=== PATIENT | female | born 1940 | race Caucasian/White ===

== ENCOUNTER 2020-11-22 19:13 | Inpatient (IN) ==
[2020-11-22 20:00] LABS: Hematocrit (blood only) 24.7 % (37-47); Hemoglobin 7.9 g/dL (12.0-16.0); Mean Corpuscular Hemoglobin 30.6 pg (25-34); Mean Corpuscular Volume 95.7 fL (80-100); Mean Platelet Volume 9.6 fL (7.4-10.4); Platelet Count 245 K/uL (130-400); RDW Coefficient of Variation 23.7 % (11.5-14.5); RDW Standard Deviation 80.4 fL (36.4-46.3); Red Blood Count 2.58 M/uL (4.2-5.4); White Blood Count 7.91 K/uL (4.8-10.8)
[2020-11-22 20:13] LABS: INR 1.1 (0.9-1.1); Partial Thromboplastin Ratio 1.2; Partial Thromboplastin Time 31.8 Seconds (21.0-31.0); Prothrombin Time 10.7 Seconds (9.0-12.0)
[2020-11-22 20:42] LABS: Albumin Globulin Ratio 0.5 (0.9-2); Bilirubin,Total 0.4 mg/dl (0.2-1); Calcium 7.6 mg/dl (8.5-10.1); Creatinine Clr Calc Pharmacy 6.8 ml/min; Est GFR (African American) 8.5 ml/min; Est GFR (Non-African American) 7.4 ml/min; Globulin 3.8 gm/dl (2.5-4.0); Magnesium 2.1 mg/dl (1.8-2.4); Total Protein 5.8 gm/dl (6.4-8.2)
[2020-11-22 20:48] LABS: Anisocytosis Present; Basophils # (auto) 0.01 K/uL (0-0.2); Basophils % (auto) 0.1 %; Eosinophils # (auto) 0.03 K/uL (0-0.5); Eosinophils % (auto) 0.4 %; Giant Platelets 2+; Hypochromasia Present; Immature Granulocytes # (auto) 0.07 K/uL (0.00-0.02); Immature Granulocytes % (auto) 0.9 %; Lymphocytes # (auto) 0.57 K/uL (1.2-3.4); Lymphocytes % (auto) 7.2 %; Monocytes # (auto) 0.69 K/uL (0.11-0.59); Monocytes % (auto) 8.7 %; Neutrophils # (auto) 6.54 K/uL (1.4-6.5); Neutrophils % (auto) 82.7 %; Polychromasia 1+
[2020-11-22] MEDS ORDERED: FUROSEMIDE 40 MG/4 ML VIAL IV STA (21:04)
--- NOTE | 2020-11-22 21:43 | Emergency Department Note ---
Impression & Plan Acute hyponatremia, Weakness, Edema, peripheral, End stage renal disease, Anemia ED Provider Note INFORMANT: Patient ED PROVIDER(S): Bladimir Pulliam MD CHIEF COMPLAINT: Abdominal bloating PLAN: Disposition: Admitted Condition: Good Outpatient prescription management: none Referral: None MEDICAL DECISION MAKING: Patient presented to [facility] from [facility] by direction of nephrology. Currently she is doing well and her vital signs were stable. She was feeling better and noted no significant shortness of breath or abdominal discomfort/bloating. She had a concerning history because of the blood noted in the PD fluid yesterday. I did discuss the patient's issues with her daughter Monet phone number [phone]. We reviewed her history at [facility] and transferred to [facility]. The patient had labs obtained and was found to be hyponatremic. She has an elevated creatinine consistent with end-stage renal disease. She is moderately anemic but has no leukocytosis. She has no fever. I discussed the case with Dr. Porter of [facility] nephrology. He asked for the patient to have a contrast-enhanced CT scan of the abdomen and pelvis as well as to receive 100 mg of IV Lasix. This was ordered. The patient needs to be worked up here in the hospital. The patient will be admitted by the [facility] hospitalist service. I did consult with them and discussed the case with . The patient was evaluated in the ER for further management. Her imaging results are pending at this time. Triage Nursing notes reviewed and agree them. Vital Signs: reviewed and remarkable for no significant abnormalities Differential diagnosis: Complication of PD catheter, intra-abdominal hemorrhage, obstruction, infection, dehydration, metabolic abnormality, hypo/hyperglycemia, electrolyte disturbance, anemia, hypoxia, cardiac sources, intracerebral event, toxicologic, neurologic, as well as other pathologies. Diagnostics interpreted by me: ECG: Twelve-lead ECG reveals atrial fibrillation at 74 bpm. Right axis deviation. Incomplete right bundle branch block. Poor R wave progression anteriorly. Subtle T wave inversion and flattening noted anteriorly. No ST elevation. Cardiac Monitoring: Cardiac monitoring ordered by me: The patient was placed on continuous cardiac monitoring and observed. It revealed atrial fibrillation at 66 bpm. Imaging studies: CT imaging chest x-ray pending. HPI: The patient is a 80 year old female who presents to the Emergency Room with abdominal bloating and possible bleeding and her peritoneal dialysis catheter. The patient was directed from [facility] rehab to the ER by Dr. Porter. She reportedly had blood in her PD fluid yesterday. Today she noted some abdominal discomfort and bloating. On arrival to the ER here she notes her belly feels normal. The patient states she has had some mild shortness of breath. She notes moderate leg swelling. The patient was transferred to [facility] from [facility]. Prior to that she did have hip surgery and also was anemic. She did require blood transfusion per her daughter. She also developed a left subconjunctival hemorrhage that has been fairly sizable but has not changed per the daughter. The patient did miss her PD yesterday. Pt denies LOC, headache, fevers, chills, diaphoresis, new visual changes, neck pain, chest pain, nausea, vomiting, current abdominal pain, back pain, melena, hematochezia, urinary symptoms, numbness, rash, or other complaints. ROS: See above HPI for pertinent positives & negatives. A total of 10 systems reviewed and were otherwise negative. PAST MEDICAL HISTORY:See Below , end-stage renal disease PAST SURGICAL HISTORY:See Below, replacement FAMILY HISTORY:See Below SOCIAL HISTORY:See Below, retired HOME MEDICATIONS:See Below ALLERGIES:See Below VITALS:See Below PHYSICAL EXAMINATION: GENERAL: Awake, tired-appearing, in no distress HENT: Normocephalic, atraumatic. Oropharynx unremarkable. EYES: Normal conjunctiva on the right. Large subconjunctival hemorrhage on the left encompassing nearly the entire sclera. PERRLA. EOMI. The left cornea is clear without signs of hyphema. Sclera non-icteric. NECK: Inspection normal. Non-tender. Supple. No nuchal rigidity. FROM. No mas ses. RESPIRATORY: Clear to auscultation. No wheezes. No rales. Normal respiratory effort. CARDIAC: Normal rate. Normal rhythm. No murmurs. No rubs. Extremities warm and well perfused. Pulses equal. No JVD. GI: Soft, non-distended. No tenderness to palpation. No rebound or guarding. No masses. RECTAL: Deferred. MUSCULOSKELETAL: Atraumatic. Chest examination reveals no tenderness. The back is symmetrical on inspection without obvious abnormality. There is no CVA tenderness to palpation. No joint edema. LOWER EXTREMITIES: Calves are equal size bilaterally and non-tender. 2-3+ edema. No discoloration. NEURO: Normal sensorium. No sensory deficits noted. Generalized weakness noted. SKIN: No rash or jaundice noted. Bladimir Pulliam MD Past Med/Surg History Social History Smoking Status: Never smoker Feels Safe at Home: Yes Allergies Allergies Allergy/AdvReac Type Severity Reaction Status Date / Time angiotensin II acetate, human Allergy Unknown Unverified 11/22/20 21:44 Penicillins Allergy Unknown Unverified 11/22/20 21:44 sacubitril [From Entresto] Allergy Unknown Unverified 11/22/20 21:44 sulfamethoxazole Allergy Unknown Unverified 11/22/20 21:44 [From Bactrim] Tetracyclines Allergy Unknown Unverified 11/22/20 21:44 trimethoprim [From Bactrim] Allergy Unknown Unverified 11/22/20 21:44 valsartan [From Entresto] Allergy Unknown Unverified 11/22/20 21:44 vancomycin Allergy Unknown Unverified 11/22/20 21:44 Home Meds Home Medications Medication Instructions Recorded Confirmed aspirin [Aspirin Low Dose] 81 mg PO DAILY 11/22/20 11/22/20 bacitracin 1 applic TOPICAL 5XD 11/22/20 11/22/20 balsalazide 2,250 mg PO BID 11/22/20 11/22/20 budesonide [Entocort EC] 3 mg PO DAILY 11/22/20 11/22/20 bumetanide 4 mg PO DAILY 11/22/20 11/22/20 carboxymethylcellulose sodium 1 drp OPHTHALMIC (EYE) BID 11/22/20 11/22/20 [Refresh Tears] cholecalciferol (vitamin D3) 25 mcg PO DAILY 11/22/20 11/22/20 [Vitamin D3] cyanocobalamin (vitamin B-12) 1,000 mcg PO DAILY 11/22/20 11/22/20 docusate sodium 100 mg PO BID 11/22/20 11/22/20 donepezil 10 mg PO DAILY 11/22/20 11/22/20 escitalopram oxalate 10 mg PO DAILY 11/22/20 11/22/20 fluconazole 100 mg PO DAILY 11/22/20 11/22/20 gabapentin 100 mg PO BID 11/22/20 11/22/20 gentamicin 1 applic TOPICAL QID 11/22/20 11/22/20 insulin regular hum U-500 conc 2 unit SUBCUT QPM 11/22/20 11/22/20 [Humulin R U-500 (Conc) Insulin] levothyroxine 125 mcg PO DAILY 11/22/20 11/22/20 linagliptin [Tradjenta] 5 mg PO DAILY 11/22/20 11/22/20 melatonin 3 mg PO HS PRN 11/22/20 11/22/20 multivitamin 1 tab PO DAILY 11/22/20 11/22/20 nitroglycerin 0.4 mg SUBLINGUAL DAILY PRN 11/22/20 11/22/20 pantoprazole 40 mg PO DAILY 11/22/20 11/22/20 repaglinide 1 mg PO TID 11/22/20 11/22/20 ropinirole 0.5 mg PO HS 11/22/20 11/22/20 zinc oxide 1 applic TOPICAL BID 11/22/20 11/22/20 Results & Data (ED) Vital Signs Vital Signs - 24 hr 11/22/20 19:17 11/22/20 19:26 11/22/20 19:27 Temperature 36.9 C Temperature Source Oral Pulse Rate 72 72 72 Pulse Rate from SpO2 Sensor Pulse Rhythm Irregular Irregular Respiratory Rate 13 14 14 Respiratory Effort / Characteristics Non-Labored Spontaneous Respiratory Depth Normal Blood Pressure 117/59 L 117/59 L Blood Pressure Mean 78 78 Pulse Oximetry 94 94 Oxygen Delivery Method Room Air Room Air Sepsis Recent Fever Within 48 Hours No Sepsis New/Unexplained Change in Mental Status No Sepsis Action Taken by Nursing No Action Required 11/22/20 19:30 11/22/20 19:31 11/22/20 19:48 Temperature Temperature Source Pulse Rate 72 Pulse Rate from SpO2 Sensor 72 Pulse Rhythm Respiratory Rate 15 Respiratory Effort / Characteristics Respiratory Depth Blood Pressure 116/57 L Blood Pressure Mean 76 Pulse Oximetry 94 95 Oxygen Delivery Method Room Air Room Air Sepsis Recent Fever Within 48 Hours Sepsis New/Unexplained Change in Mental Status Sepsis Action Taken by Nursing 11/22/20 20:00 11/22/20 20:30 11/22/20 21:00 Temperature Temperature Source Pulse Rate 72 71 66 Pulse Rate from SpO2 Sensor 72 72 62 Pulse Rhythm Respiratory Rate 19 21 17 Respiratory Effort / Characteristics Respiratory Depth Blood Pressure 121/56 L 103/56 L 106/48 L Blood Pressure Mean 77 71 67 Pulse Oximetry 95 94 91 Oxygen Delivery Method Sepsis Recent Fever Within 48 Hours Sepsis New/Unexplained Change in Mental Status Sepsis Action Taken by Nursing 11/22/20 21:31 Temperature Temperature Source Pulse Rate 86 Pulse Rate from SpO2 Sensor 79 Pulse Rhythm Respiratory Rate 25 H Respiratory Effort / Characteristics Respiratory Depth Blood Pressure 137/73 Blood Pressure Mean 94 Pulse Oximetry Oxygen Delivery Method Sepsis Recent Fever Within 48 Hours Sepsis New/Unexplained Change in Mental Status Sepsis Action Taken by Nursing Laboratory Data Result diagrams: 11/22/20 19:39 11/22/20 19:39 Lab Results 11/22/20 11/22/20 11/22/20 Range/Units 19:39 19:39 19:39 WBC 7.91 (4.8-10.8) K/uL RBC 2.58 L (4.2-5.4) M/uL Hgb 7.9 L (12.0-16.0) g/dL Hct 24.7 L (37-47) % MCV 95.7 (80-100) fL MCH 30.6 (25-34) pg MCHC 32.0 (32-36) g/dL RDW Std Deviation 80.4 H (36.4-46.3) fL RDW Coeff of Mariaelena 23.7 H (11.5-14.5) % Plt Count 245 (130-400) K/uL MPV 9.6 (7.4-10.4) fL Immature Gran % (Auto) 0.9 % Neut % (Auto) 82.7 % Lymph % (Auto) 7.2 % Mcdonald % (Auto) 8.7 % Eos % (Auto) 0.4 % Baso % (Auto) 0.1 % Neut # (Auto) 6.54 H (1.4-6.5) K/uL Lymph # (Auto) 0.57 L (1.2-3.4) K/uL Mcdonald # (Auto) 0.69 H (0.11-0.59) K/uL Eos # (Auto) 0.03 (0-0.5) K/uL Baso # (Auto) 0.01 (0-0.2) K/uL Immature Gran # (Auto) 0.07 H (0.00-0.02) K/uL Giant Platelets 2+ Polychromasia 1+ Hypochromasia Present Anisocytosis Present PT (9.0-12.0) Seconds INR (0.9-1.1) APTT (21.0-31.0) Seconds PTT Ratio Sodium 123 L (136-145) mmol/L Potassium 5.0 (3.5-5.1) mmol/L Chloride 86 L (98-107) mmol/L Carbon Dioxide 24 (21-32) mmol/L Anion Gap 13.0 H (3-11) BUN 123 H (7-18) mg/dl Creatinine 5.19 H* (0.6-1.2) mg/dl Est Cr Clr Drug Dosing 6.8 ml/min Est GFR ( Amer) 8.5 ml/min Est GFR (Non-Af Amer) 7.4 ml/min BUN/Creatinine Ratio 24.0 H (10-20) Glucose 102 H (70-99) mg/dl Calcium 7.6 L (8.5-10.1) mg/dl Magnesium 2.1 (1.8-2.4) mg/dl Total Bilirubin 0.4 (0.2-1) mg/dl AST 49 H (15-37) U/L ALT 16 (12-78) U/L Alkaline Phosphatase 339 H (45-117) U/L Total Protein 5.8 L (6.4-8.2) gm/dl Albumin 2.0 L (3.4-5.0) gm/dl Globulin 3.8 (2.5-4.0) gm/dl Albumin/Globulin Ratio 0.5 L (0.9-2) COVID-19 Eval Order SARS-CoV-2 (PCR) (Negative) Blood Type O Positive Antibody Screen NEGATIVE 11/22/20 11/22/20 11/22/20 Range/Units 19:39 19:43 19:43 WBC (4.8-10.8) K/uL RBC (4.2-5.4) M/uL Hgb (12.0-16.0) g/dL Hct (37-47) % MCV (80-100) fL MCH (25-34) pg MCHC (32-36) g/dL RDW Std Deviation (36.4-46.3) fL RDW Coeff of Mariaelena (11.5-14.5) % Plt Count (130-400) K/uL MPV (7.4-10.4) fL Immature Gran % (Auto) % Neut % (Auto) % Lymph % (Auto) % Mcdonald % (Auto) % Eos % (Auto) % Baso % (Auto) % Neut # (Auto) (1.4-6.5) K/uL Lymph # (Auto) (1.2-3.4) K/uL Mcdonald # (Auto) (0.11-0.59) K/uL Eos # (Auto) (0-0.5) K/uL Baso # (Auto) (0-0.2) K/uL Immature Gran # (Auto) (0.00-0.02) K/uL Giant Platelets Polychromasia Hypochromasia Anisocytosis PT 10.7 (9.0-12.0) Seconds INR 1.1 (0.9-1.1) APTT 31.8 H (21.0-31.0) Seconds PTT Ratio 1.2 Sodium (136-145) mmol/L Potassium (3.5-5.1) mmol/L Chloride (98-107) mmol/L Carbon Dioxide (21-32) mmol/L Anion Gap (3-11) BUN (7-18) mg/dl Creatinine (0.6-1.2) mg/dl Est Cr Clr Drug Dosing ml/min Est GFR ( Amer) ml/min Est GFR (Non-Af Amer) ml/min BUN/Creatinine Ratio (10-20) Glucose (70-99) mg/dl Calcium (8.5-10.1) mg/dl Magnesium (1.8-2.4) mg/dl Total Bilirubin (0.2-1) mg/dl AST (15-37) U/L ALT (12-78) U/L Alkaline Phosphatase (45-117) U/L Total Protein (6.4-8.2) gm/dl Albumin (3.4-5.0) gm/dl Globulin (2.5-4.0) gm/dl Albumin/Globulin Ratio (0.9-2) COVID-19 Eval Order Covid19 at [facility] SARS-CoV-2 (PCR) NEGATIVE (Negative) Blood Type Antibody Screen Administered Medications Discontinued Medications Furosemide (Furosemide 40 Mg/4 Ml Vial) 100 mg IV NOW STA Stop: 11/22/20 21:05 Last Admin: 11/22/20 21:23 Dose: 100 mg Documented by: [id number] Discharge Plan Visit Data Chief Complaint: Shortness of Breath/Dyspnea Stated Complaint: SHORT OF BREATH ED Provider: Bladimir Pulliam Discharge Problem: Acute hyponatremia, Weakness, Edema, peripheral, End stage renal disease, Anemia Forms Stand Alone Forms: [facility] Prescriptions Prescriptions: No Action multivitamin Tablet 1 tab PO DAILY RF: 0 fluconazole 100 mg Tablet 100 mg PO DAILY RF: 0 donepezil 10 mg Tablet 10 mg PO DAILY RF: 0 bacitracin 500 unit/gram Ointment 1 applic TOPICAL 5XD RF: 0 melatonin 3 mg Tablet 3 mg PO HS PRN (Reason: Sleep) RF: 0 aspirin [Aspirin Low Dose] 81 mg Tablet,Delayed Release (Dr/Ec) 81 mg PO DAILY RF: 0 Humulin R U-500 (Conc) Insulin 500 unit/mL Solution 2 unit SUBCUT QPM RF: 0 levothyroxine 125 mcg Tablet 125 mcg PO DAILY RF: 0 docusate sodium 100 mg Capsule 100 mg PO BID RF: 0 balsalazide 750 mg Capsule 2,250 mg PO BID RF: 0 gentamicin 0.1 % Ointment 1 applic TOPICAL QID RF: 0 escitalopram oxalate 10 mg Tablet 10 mg PO DAILY RF: 0 zinc oxide Ointment 1 applic TOPICAL BID RF: 0 gabapentin 100 mg Tablet 100 mg PO BID RF: 0 Tradjenta 5 mg Tablet 5 mg PO DAILY RF: 0 bumetanide 2 mg Tablet 4 mg PO DAILY RF: 0 pantoprazole 40 mg Tablet,Delayed Release (Dr/Ec) 40 mg PO DAILY RF: 0 nitroglycerin 0.4 mg Tablet, Sublingual 0.4 mg sublingual DAILY PRN (Reason: Chest Pain) RF: 0 repaglinide 1 mg Tablet 1 mg PO TID RF: 0 cholecalciferol (vitamin D3) [Vitamin D3] 25 mcg (1,000 unit) Tablet 25 mcg PO DAILY RF: 0 cyanocobalamin (vitamin B-12) 1,000 mcg Capsule 1,000 mcg PO DAILY RF: 0 carboxymethylcellulose sodium [Refresh Tears] 0.5 % Drops 1 drp OPHTHALMIC (EYE) BID RF: 0 ropinirole 0.5 mg Tablet 0.5 mg PO HS RF: 0 budesonide [Entocort EC] 3 mg Capsule,Delayed,Extend.Release 3 mg PO DAILY RF: 0
[2020-11-22] MEDS ORDERED: OPTIRAY 320 100ml IV ONE (22:07)
[2020-11-22 22:23] LABS: Appearance Urine Clear (Clear); Bacteria Urine Automated Negative (Negative); Bilirubin Urine Negative (Negative); Blood Urine Negative (Negative); Cast Urine Automated 0 /lpf (0-5); Color Urine Dark Yellow; Glucose Urine UA Negative (Negative); Ketones Urine Negative (Negative); Leukocyte Esterase Urine Trace (Negative); Nitrite Urine Negative (Negative); Protein Urine Negative (Negative); Specific Gravity Urine 1.018 (1.000-1.030); Urobilinogen Urine Negative (Negative)
[2020-11-22 22:35] LABS: RBC Urine Automated 0-4 /hpf (0-4)
[2020-11-23] MEDS ORDERED: MELATONIN 3 MG TAB PO PRN (00:48)
[2020-11-23] MEDS ORDERED: NITROGLYCERIN SL 0.4 MG/TAB TAB SL PRN ×2 (00:48)
[2020-11-23] MEDS: ACETAMINOPHEN 325 MG TAB PO PRN ×2 (01:12→15:14)
[2020-11-23] MEDS ORDERED: GLUCOSE 40% GEL 15 GM TUBE PO PRN (01:30)
[2020-11-23] MEDS ORDERED: CARBOHYDRATES FOR HYPOGLYCEMIA PO PRN (01:30)
[2020-11-23] MEDS ORDERED: GLUCOSE 10 TABS/TUBE PO PRN (01:30)
[2020-11-23] MEDS ORDERED: GLUCAGON FOR INJ 1 MG VIAL IM PRN (01:30)
[2020-11-23] MEDS ORDERED: DEXTROSE 50% 50 ML SYRINGE IV PRN (01:30)
[2020-11-23] MEDS: rOPINIRole HCL 0.25 MG TABLET PO SCH ×2 (02:09→20:00)
--- NOTE | 2020-11-23 04:43 | History and Physical Report ---
DATE OF ADMISSION: 11/22/2020 CHIEF COMPLAINT: Missed dialysis and abdominal bloating. HISTORY OF PRESENT ILLNESS: A 80-year-old female with past medical history significant for type 2 diabetes, hypothyroidism, hyperlipidemia, hyperparathyroidism secondary to renal disease, diabetic polyneuropathy, mild nonproliferative diabetic retinopathy of both eyes without macular edema associated with type 2 diabetes, chronic pancreatitis, lung nodules , history of MN, history of chronic heart failure with preserved EF, moderate to severe pulmonary hypertension, paroxysmal atrial fibrillation, hypertension, CAD, moderate tricuspid regurgitation, severe malnutrition, GERD, history of collagenous colitis, history of unspecified cirrhosis of liver, history of pressure ulcer unstageable, restless leg syndrome, osteoporosis, compression fracture of the spine, ESRD on peritoneal dialysis, depression, history of CABG, history of mild cognitive impairment, primary insomnia, history of recent conjunctival hemorrhage of left eye. The patient was recently at [facility] for right hip fracture. The patient is status post right cemented hip arthroplasty in November 03 with orthopedics . complicated by postoperative blood loss anemia, required 2 units of PRBC, and also she has L5 vertebral body compression fractures evaluated by neurosurgery and deemed stable for conservative management and she also found to have possible [employer] PARAPROFESSIONAL was consulted with out patient followup and possibly transvaginal ultrasound recommended, urinary tract infection on flucanozole until 11/29, she also had urinary retention requiring multiple straight catheterizations and left eye subconjunctival hemorrhage, likely contributed by uremia on artificial tears as recommended by ophthalmology. She was discharged to rehab on 11/19/2020 and yesterday she had some blood while doing peritoneal dialysis and dialysis was not done. Today she also is complaining of bloating and nausea, not feeling well, tired. Brought in here and Nephrology wanted ct abd/pelvis with IV contrast which was done, which was reported unremarkable and labs shows sodium 123.Plan for dialysis in a.m. The patient's left eye subconjunctival hemorrhage is seen, there is no blurred vision, no headache, no earache, no runny nose, no sore throat, no cough, no fever, no chills, no chest pain. Has some shortness of breath and nausea, bloating is better. She says she has on and off diarrhea and constipation . She sometimes makes urine. Hemodynamically stable. ALLERGIES: PENICILLIN, ENTRESTO, BACTRIM, TETRACYCLINE, VANCOMYCIN. PAST MEDICAL HISTORY: As mentioned above. PAST SURGICAL HISTORY: CABG, AV access, , colonoscopy, coronary angiography with stent, coronary artery dilatation, dilatation and curettage, EGDs, flexible sigmoidoscopy, diagnostic laparoscopy, lumbar hemilaminectomy, right partial hip replacement, appendectomy, cataract surgery, removal of lumbar spine lamina, surgical removal of erupted tooth,upper endoscopy. MEDICATIONS: The patient currently on aspirin 81 mg p.o. daily, Bacitracin topically, balsalazide 2250mg budenoside 3mg po daily, bumex 4mg in am, 3mg noon and 3mg pm Restasis eye drops, vitamin D 25 mcg p.o. daily, vitamin B12 1000 mcg p.o. daily, Colace 100 mg p.o. b.i.d., donepezil 10 mg p.o. daily, Lexapro 10 mg p.o. daily, [id number] mg p.o. daily until , gabapentin 200 mg p.o. at bedtime, Humulin R U-500 2 units subcutaneous p.m., levothyroxine 125 mcg p.o. daily, Tradjenta 5 mg p.o. daily, melatonin 3 mg p.o. at bedtime p.r.n., multivitamin 1 tablet p.o. daily, nitroglycerin 0.4 mg sublingual p.r.n., Protonix 40 mg p.o. daily,repaglinide 1mg p.o. t.i.d., ropinirole 0.5 mg p.o. at bedtime, zinc oxide application topically b.i.d. FAMILY HISTORY: Significant for history of Alzheimer's disease, dermatomyositis, coronary artery disease. Father has coronary artery disease, emphysema, heart disorder, hypertension. Mother has stroke, hypertension and heart disorder. SOCIAL HISTORY: Currently at rehab,. No smoking, no alcohol, no drug use. REVIEW OF SYMPTOMS: As per HPI. Rest of review of systems is negative. PHYSICAL EXAMINATION: GENERAL: The patient is obese, not in acute distress. VITAL SIGNS: Temperature 36.9, pulse 86, respiratory rate 25, blood pressure 131/70, pulse ox 97% on room air. HEENT: Conjunctival hemorrhage seen on the left eye. Pupils equal, round, and reactive to light. Oral mucosa moist. NECK: No JVD. No neck masses. CARDIOVASCULAR: S1, S2 heard, regular rate and rhythm, no murmur, no gallop. RESPIRATORY SYSTEM: Normal AP diameter. No accessory muscle use. No wheezing, no crackles. ABDOMEN: Soft, bowel sounds present, nontender. No guarding, no rigidity. Peritoneal catheter site, no drainage seen, no erythema seen. CENTRAL NERVOUS SYSTEM: alert and oriented. speech clear, no facial droop, insight good, moves extremities. EXTREMITIES: No edema, no erythema seen. Skin Sacra pressure ulcere stage 2/3 seen LABORATORY DATA: wbc 7.9 hemoglobin 7.9, hematocrit 24.7, platelets 245. PT 10.7, INR 1.1, APTT 31.8. Sodium 123, potassium 5, chloride 86 CO2 24, Bun 123, Cr 5.19 serum glucose 102, calcium 7.6, magnesium 2.1, total bilirubin 0.4, AST 14, ALT 15, alkaline phosphatase 339. Urinalysis, trace leukocyte esterase, otherwise negative. SARS CoV-2 PCR negative. IMAGING: Chest x-ray, no acute findings. CT of the abdomen and pelvis with IV contrast. No hemoperitoneum, peritoneal dialysis catheter in place. Small volume free fluid in the pelvis, trace hemoperitoneum secondary to catheter. Volume overload with anasarca. Small right and trace left pleural effusion, cholelithiasis without evidence of acute cholecystitis. Age indeterminate splenic infarct. Atrophic right kidney. Delayed nephrogram. Moderate colonic stool burden. . Age indeterminate compression deformity of T12, L4 and L5. ASSESSMENT AND PLAN: This 80-year-old female recently had right hip surgery at [place] presents here because of bloating and missed dialysis for bleeding from catheter site. 1. Bleeding from PD catheter site. Currently seems ok. Ct abd/pevis with iv contrast seems ok. Will follow final report. Nephrology on board. 2. Hyponatremia, most likely due to missed dialysis and volume overload. Received iv lasix 100mg. Follow the repeat labs in a.m. and plan for dialysis in a.m. 3. Anemia of chronic kidney disease. Hemoglobin 7.9. Follow the repeat labs in a.m. 4. Diabetes. We will follow home medication ISS. we will follow HbA1c 5. Bloating probably from missed dialysis and hyponatremia.CT ok. Will monitor. 6 GERD. Continue Protonix. 7. Hypothyroidism. Continue Synthroid 8. Depression, on Lexapro. 9. recent right hip surgery. Site looks fine. pt/ot when stable. 10. hx of chf with preserved Ef. unspecified liver cirrhosis. Volume status by dialysis 11. Cad s/p cabg. On aspirin, statin and b laura. 12. hx of collagenous colitis. home meds. 13. Sacral pressure ulcer. Wound care 14. Conjunctival hemorrhage on left eye. continue artificial tears. 15. UTi to complete fluconazole tx. 16. DVT px scds DISPOSITION: closely monitor in the tele floor. Level 1 full code. Discharge her back to rehab when stable. PT/OT prior to discharge. security services manager to help with discharge planning. KALIN
[2020-11-23] MEDS: BACITRACIN OINT 15 GM TUBE TOP SCH ×5 (05:35→19:55)
[2020-11-23] MEDS: LEVOTHYROXINE SODIUM 125 MCG TABLET PO SCH (05:35)
[2020-11-23 05:45] LABS: Hemoglobin 8.5 g/dL (12.0-16.0); Mean Corpuscular Hgb Conc 32.7 g/dL (32-36); Mean Corpuscular Volume 94.9 fL (80-100); Platelet Count 235 K/uL (130-400); RDW Coefficient of Variation 23.7 % (11.5-14.5); RDW Standard Deviation 80.3 fL (36.4-46.3); Red Blood Count 2.74 M/uL (4.2-5.4)
[2020-11-23 06:28] LABS: Anisocytosis Present; Basophilic Stippling 1+; Basophils # (auto) 0.01 K/uL (0-0.2); Basophils % (auto) 0.1 %; Eosinophils # (auto) 0.02 K/uL (0-0.5); Eosinophils % (auto) 0.2 %; Immature Granulocytes # (auto) 0.08 K/uL (0.00-0.02); Immature Granulocytes % (auto) 0.9 %; Lymphocytes # (auto) 0.59 K/uL (1.2-3.4); Lymphocytes % (auto) 6.6 %; Monocytes # (auto) 1.03 K/uL (0.11-0.59); Monocytes % (auto) 11.6 %; Neutrophils # (auto) 7.17 K/uL (1.4-6.5); Neutrophils % (auto) 80.6 %; Polychromasia 1+
[2020-11-23 06:32] LABS: BUN Creatinine Ratio 24.7 (10-20); Creatinine Clr Calc Pharmacy 6.4 ml/min; Est GFR (African American) 8.4 ml/min; Est GFR (Non-African American) 7.2 ml/min; Magnesium 2.2 mg/dl (1.8-2.4); Potassium 5.4 mmol/L (3.5-5.1)
--- NOTE | 2020-11-23 07:35 | XRay Report ---
XR chest 1V portable CLINICAL HISTORY: weakness, esrd COMPARISON STUDY: No previous studies for comparison. FINDINGS: There are median sternotomy wires and mediastinal surgical clips. No pneumothorax is presen t. There are bilateral pleural effusions right larger left. There are bibasilar opacities. Interstiti al pulmonary edema is present. Note is made of cardiomegaly. IMPRESSION: Cardiomegaly with pulmonary edema and bilateral pleural effusions, right larger than lef t. ACT 112: Negative or not required by law. Electronically signed by: Anoop Connell M.D. 11/23/2020 7:33 AM
[2020-11-23 08:33] LABS: Estimated Average Glucose 100 mg/dl; Hemoglobin A1C 5.1 % (4.5-5.6)
--- NOTE | 2020-11-23 08:57 | CT Scan Report ---
ABDOMEN AND PELVIS CT WITH IV CONTRAST CT DOSE: 262.17 mGy.cm HISTORY: blood in peritoneal dialysis fluid TECHNIQUE: Multiaxial CT images of the abdomen and pelvis were performed following the use of intrave nous contrast. A dose lowering technique was utilized adhering to the principles of ALARA. COMPARISON STUDY: None. FINDINGS: Moderate right and small left pleural effusions with lower lobe consolidation. This favors compressive atelectasis from the pleural effusions. No pneumatosis. There is a healing left pubic rin g fracture. There is a right total hip arthroplasty. There are bilateral sacral insufficiency fractur es noted. These also are likely healing. Severe T12 compression deformity with 3 mm of retropulsion t he posterior superior corner. Mild anterior wedging at L2. There are moderate compression deformities at the superior endplate of L4 and inferior endplate of L5. These are technically age indeterminate but likely chronic. Cholelithiasis. No gallbladder wall thickening. Focal hypodensity within the sple arleen dome favors a splenic infarct. Mild atrophic right kidney. Delayed left nephrogram without hydron ephrosis. This could be due to to the proximal left renal artery stenosis from the atherosclerotic pl aque. There is severe calcified plaque within the aorta and mesenteric vessels. No evidence for an ab dominal aortic aneurysm. No retroperitoneal lymphadenopathy. The main portal vein is patent. There is mild periportal edema. There is severe diffuse body wall edema. Trace ascites. No evidence for hemop eritoneum. There is a peritoneal dialysis catheter terminating within the anterior pelvis. Trace ante rior pneumoperitoneum is likely due to the dialysis catheter. Bladder is underdistended and not well visualized. Moderate well-formed stool within the colon. There is mild mesenteric edema. No definite bowel wall thickening or obstruction. Hypodense appearance to the uterus which is not well visualized due to metallic artifact from the right hip prosthesis. IMPRESSION: 1. Peritoneal dialysis catheter is likely within the anterior pelvis. 2. No hemoperitoneum. 3. Severe diffuse body wall edema. 4. Cholelithiasis. 5. Delayed left nephrogram of uncertain etiology. No hydronephrosis. This could be due to a left kota l artery stenosis. 6. Focal splenic infarct. 7. Healing pelvic fractures as described above. 8. Age-indeterminate compression fractures within the spine. These are likely chronic. 9. No definite bowel wall thickening or obstruction. 10. Hypodense appearance to the uterus which is not well visualized due to the metallic artifact the right hip prosthesis. Consider follow-up nonemergent pelvic ultrasound for further evaluation. ACT 112: Positive. There are findings on this exam that require communication between the performing entity and the patient following Patient Test Result Information Act ([place] Act 112) guidelines. Electronically signed by: Choco Gaines M.D. 11/23/2020 8:56 AM
[2020-11-23] MEDS: INSULIN ASPART 100 UNITS/ML 3 ML PEN SC SCH ×4 (08:58→20:23)
[2020-11-23] MEDS ORDERED: BUMETANIDE 1 MG TAB PO SCH (09:00)
[2020-11-23] MEDS: DONEPEZIL HCL 10 MG TAB PO SCH (09:12)
[2020-11-23] MEDS: ESCITALOPRAM OXALATE 10 MG TAB PO SCH (09:12)
[2020-11-23] MEDS: MULTIVITAMIN TAB PO SCH (09:12)
[2020-11-23] MEDS: BUMETANIDE 1 MG TAB PO SCH ×3 (09:12→17:06)
[2020-11-23] MEDS: ASPIRIN 81 MG ECTAB PO SCH (09:12)
[2020-11-23] MEDS: DOCUSATE SODIUM 100 MG CAP PO SCH ×2 (09:12→20:02)
[2020-11-23] MEDS: CHOLECALCIFEROL 1,000 UNITS 25 MCG TAB PO SCH (09:12)
[2020-11-23] MEDS: PANTOprazole 40 MG TAB PO SCH (09:12)
[2020-11-23] MEDS: CYANOCOBALAMIN 500 MCG TABLET (VITAMIN B-12) PO SCH (09:12)
[2020-11-23] MEDS: FLUCONAZOLE 100 MG TAB PO SCH (09:12)
[2020-11-23] MEDS: BUDESONIDE EC 3 MG CAP PO SCH (09:12)
[2020-11-23] MEDS: ARTIFICIAL TEARS OP SCH ×2 (09:13→19:58)
[2020-11-23] MEDS: BUTT PASTE (ZINC OXIDE 16%) 171 APPLN/57 GM JAR EXT SCH ×2 (09:14→19:55)
[2020-11-23] MEDS ORDERED: metOLazone 5 MG TABLET PO ONE (10:02)
[2020-11-23] MEDS ORDERED: FUROSEMIDE 100 MG in SYRINGE 0 ML IV SCH (10:30)
--- NOTE | 2020-11-23 11:18 | Consultation Report ---
DATE OF CONSULTATION: 11/23/20 REASON FOR CONSULT: Peritoneal dialysis patient admitted because of abdominal pain and blood in the peritoneal dialysate. HISTORY OF PRESENT ILLNESS: The patient is a 80-year-old female with significant medical problem list including end-stage renal disease, newly started on peritoneal dialysis within the last few months. She was currently getting rehabilitation at the [facility] following an admission in [facility]. There, she was admitted for right hip fracture and surgical repair, which was done on 11/03/2020. Post- surgery, she had complicated course of events including significant blood loss anemia requiring blood transfusion and was also found to have vertebral body compression fracture, which was evaluated by neurosurgery, but she did not require surgery for that. She has also had multiple episodes of urinary retention as well as urinary tract infections requiring multiple straight catheterization. While in the hospital, she also developed significant subconjunctival hemorrhage. She was discharged to [facility] on 11/19/2020 for further rehabilitation. [facility], she had bloody dialysis in the peritoneal fluid and then the following day, she started having abdominal bloating as well as discomfort. Because of the bleeding and belly pain, she was instructed to come to the hospital for further evaluation and management. She did have a CT abdomen and pelvis with IV contrast as per my plan, which was unremarkable for anything life threatening. At this point, she is not complaining of abdominal pain. She has not had peritoneal dialysis now for 2 nights in a row because of bleeding and abdominal pain. At this point, she appears to be hemodynamically stable with decent blood pressure and vital signs. Laboratory test was significant for low serum sodium, which is down to 121 now. Potassium is 5.4. She does appear to be in volume overload and has significant edema at this point. PAST MEDICAL AND SURGICAL HISTORY: Includes type 2 diabetes, hypothyroidism, hyperlipidemia, ESRD on CAPD, diabetic polyneuropathy, diabetic retinopathy, history of chronic pancreatitis, lung nodules, history of [place], history of congestive heart failure with preserved ejection fraction, moderate to severe pulmonary hypertension, paroxysmal atrial fibrillation, GERD, history of severe osteoporosis as well as renal osteodystrophy, history of CABG, history of recent hip fracture with surgery, history of recent conjunctival hemorrhage. MEDICATIONS AT HOME: Reviewed in detail insert the reconciliation list. FAMILY HISTORY: Significant for Alzheimer disease, dermatomyositis, coronary artery disease. SOCIAL HISTORY: Currently getting rehabilitation at [facility]. No smoking, no alcohol, no drugs. REVIEW OF SYSTEMS: As per HPI, unless stated otherwise 12 systems reviewed and negative. Positive review of system included abdominal discomfort, bloating, but denies nausea, vomiting, chest pain, shortness of breath, orthopnea, PND. She does have significant lower extremity edema. PHYSICAL EXAMINATION: GENERAL: Elderly white female who appears to be chronically ill with frail appearance. She is not in overt respiratory distress. VITAL SIGNS: Blood pressure is 116/81, pulse rate 80, temperature 36.5, 97% on room air. Mucous membrane is moist. NECK: Supple. Jugular venous distention present. CHEST: Bilateral decreased breath sounds, occasional crackles at the bases. CVS: S1 and S2 regular. Systolic murmur heard. ABDOMEN: Distended. Abdominal wall edema present. EXTREMITIES: Show 2+ edema bilaterally. NEUROLOGIC: Normal speech. Awake, alert, oriented, moving all 4 extremities. LABORATORY TESTS: Hemoglobin 8.5. Sodium is 121, potassium 5.4, BUN 131, creatinine is 5.28. Chest x-ray shows pulmonary congestion. CT abdomen and pelvis shows abdominal wall edema, but there was not anything very concerning on the CT abdomen. ASSESSMENT AND PLAN: A 80-year-old female with endstage renal disease on chronic peritoneal dialysis, now transferred from [facility] where she had some bloody peritoneal dialysate, with abdominal distention. 1. Endstage renal disease. She does appear to be in need of doing dialysis, which we will do today. However, first I would like to do the PD fluid analysis to rule out peritonitis. We will send the PD fluid for cell count with differential, Gram stain and culture. After that, we will do a very prolonged peritoneal dialysis as she seems to be in some uremic phase. Her BUN is very high. Sodium is very low, consistent with hypervolemic hyponatremia. 2. Give Lasix 100 mg IV x1 with metolazone 5 mg to see if we can make some urine output. 3. After we obtain the cell count results, we will make further adjustment regarding the peritoneal dialysis. 4. For the next few days, she will need more aggressive dialysis to achieve euvolemic state as well as better BUN, creatinine and electrolytes. It does appear that she has not had adequate dialysis for quite some time and not just for 2 days that she missed, but this should get better in the coming days with more aggressive dialysis. Job ID: [id number] KALIN
--- NOTE | 2020-11-23 12:20 | Hospitalist Progress Note ---
Date of Service November 23, 2020 Assessment & Plan (1) Acute hyponatremia: (2) End stage renal disease: Bleeding from catheter site Abdominal bloating/Discomfort Get PD catheter fluid analysis CT abd and pelvis does not show hemoperitoneum Discussed with bar supervisor BUN markedly elevated Patient has not had good dialysis in the past few days due to Plan for aggressive dialysis in the next few days to achieve euvolemia Continue diuretics per nephrology Hyponatremia likely due to fluid overload Monitor sodium with initiation of dialysis Hypothyroidism Continue levothyroxine Depression Continue Lexapro. Recent right hip surgery PT/OT History of CHF with preserved EF. Volume status by dialysis CAD S/P CABG. Continue aspirin, statin and b laura. Conjunctival hemorrhage on left eye. Continue artificial tears. UTI Complete fluconazole tx. DVT ppx- SCD Admission and Anticipated Discharge Date Admission Date: November 22, 2020 Subjective 10-year-old female with PMH of DM2, hypothyroidism, hyperlipidemia, hyperparathyroidism secondary to renal disease, diabetic polyneuropathy, mild nonproliferative diabetic retinopathy of both eyes without macular edema, chronic pancreatitis, lung nodules, history of [place], history of chronic heart failure with preserved EF, moderate to severe pulmonary hypertension, paroxysmal atrial fibrillation, hypertension, CAD, moderate tricuspid regurgitation, severe malnutrition, GERD, history of collagenous colitis, history of unspecified cirrhosis of liver, history of pressure ulcer unstageable, restless leg syndrome, osteoporosis, compression fracture of the spine, ESRD newly started on peritoneal dialysis in the past few months, depression, history of CABG, history of mild cognitive impairment, primary insomnia, recent hospitalization at [place] for right hip fracture and repair, with complicated hospital course associated with blood loss anemia requiring transfusion, vertebral body compression fracture, multiple episodes of urinary retention and urinary tract infections significant left subconjunctival hemorrhage, who presents from [facility] rehab for blood from dialysis catheter and abd bloating/discomfort. Noted to by hyponatremic on presentation Patient seeen and examiend this morning Reports no abd discomfort/bloating at this time No nausea/vomiting Report some constipation. Reports occasional dryness of left eye but controlled with tear drops Denied any fevers, chills Denied any chest pain, shortness of breath Review of Systems Review of Systems: All systems reviewed & are unremarkable except as noted in Subjective Physical Exam Constitutional: + ill appearing (chronic); no acute distress Elderly woman Eyes: Left conjunctival hemorrhage ENMT: external ear and nose normal, oropharynx normal Respiratory: normal respiratory effort, lungs clear to auscultation Cardiovascular: Rate/Rhythm: + irregularly irregular S1 S2 +Pedal edema Gastrointestinal (Abdomen): normal bowel sounds, soft, nontender, no hepatosplenomegaly PD catheter in situ Musculoskeletal: +leg edema Neurologic: PERRL, EOMI, accommodation nl, no face palsy, no dysarthria Psychiatric: A+Ox3, euthymic affect Results & Data Results & Data ([facility]) Vital Signs (Past 12 Hours) Vital Signs Temp Pulse Resp BP Pulse Ox 11/23/20 07:28 36.5 C 80 17 116/81 97 11/23/20 03:54 36.7 C 80 22 121/71 93 11/23/20 00:49 36.6 C 78 18 141/65 H 97 Laboratory Results Abnormal lab results 11/22/20 11/22/20 11/22/20 Range/Units 19:39 19:39 19:39 RBC 2.58 L (4.2-5.4) M/uL Hgb 7.9 L (12.0-16.0) g/dL Hct 24.7 L (37-47) % RDW Std Deviation 80.4 H (36.4-46.3) fL RDW Coeff of Mariaelena 23.7 H (11.5-14.5) % Neut # (Auto) 6.54 H (1.4-6.5) K/uL Lymph # (Auto) 0.57 L (1.2-3.4) K/uL Antelope # (Auto) 0.69 H (0.11-0.59) K/uL Immature Gran # (Auto) 0.07 H (0.00-0.02) K/uL APTT 31.8 H (21.0-31.0) Seconds Sodium 123 L (136-145) mmol/L Potassium (3.5-5.1) mmol/L Chloride 86 L (98-107) mmol/L Anion Gap 13.0 H (3-11) BUN 123 H (7-18) mg/dl Creatinine 5.19 H* (0.6-1.2) mg/dl BUN/Creatinine Ratio 24.0 H (10-20) Glucose 102 H (70-99) mg/dl POC Glucose (70-99) mg/dl Calcium 7.6 L (8.5-10.1) mg/dl AST 49 H (15-37) U/L Alkaline Phosphatase 339 H (45-117) U/L Total Protein 5.8 L (6.4-8.2) gm/dl Albumin 2.0 L (3.4-5.0) gm/dl Albumin/Globulin Ratio 0.5 L (0.9-2) Ur Leukocyte Esterase (Negative) U Epithel Cells (Auto) (0-5) /lpf 11/22/20 11/23/20 11/23/20 Range/Units 21:40 05:33 05:33 RBC 2.74 L (4.2-5.4) M/uL Hgb 8.5 L (12.0-16.0) g/dL Hct 26.0 L (37-47) % RDW Std Deviation 80.3 H (36.4-46.3) fL RDW Coeff of Mariaelena 23.7 H (11.5-14.5) % Neut # (Auto) 7.17 H (1.4-6.5) K/uL Lymph # (Auto) 0.59 L (1.2-3.4) K/uL Antelope # (Auto) 1.03 H (0.11-0.59) K/uL Immature Gran # (Auto) 0.08 H (0.00-0.02) K/uL APTT (21.0-31.0) Seconds Sodium 121 L (136-145) mmol/L Potassium 5.4 H (3.5-5.1) mmol/L Chloride 85 L (98-107) mmol/L Anion Gap 12.0 H (3-11) BUN 131 H (7-18) mg/dl Creatinine 5.28 H* (0.6-1.2) mg/dl BUN/Creatinine Ratio 24.7 H (10-20) Glucose 47 L* (70-99) mg/dl POC Glucose (70-99) mg/dl Calcium 8.0 L (8.5-10.1) mg/dl AST (15-37) U/L Alkaline Phosphatase (45-117) U/L Total Protein (6.4-8.2) gm/dl Albumin (3.4-5.0) gm/dl Albumin/Globulin Ratio (0.9-2) Ur Leukocyte Esterase Trace H (Negative) U Epithel Cells (Auto) 5-10 H (0-5) /lpf 11/23/20 11/23/20 11/23/20 Range/Units 06:37 07:22 12:06 RBC (4.2-5.4) M/uL Hgb (12.0-16.0) g/dL Hct (37-47) % RDW Std Deviation (36.4-46.3) fL RDW Coeff of Mariaelena (11.5-14.5) % Neut # (Auto) (1.4-6.5) K/uL Lymph # (Auto) (1.2-3.4) K/uL Antelope # (Auto) (0.11-0.59) K/uL Immature Gran # (Auto) (0.00-0.02) K/uL APTT (21.0-31.0) Seconds Sodium (136-145) mmol/L Potassium (3.5-5.1) mmol/L Chloride (98-107) mmol/L Anion Gap (3-11) BUN (7-18) mg/dl Creatinine (0.6-1.2) mg/dl BUN/Creatinine Ratio (10-20) Glucose (70-99) mg/dl POC Glucose 58 L* 109 H 103 H (70-99) mg/dl Calcium (8.5-10.1) mg/dl AST (15-37) U/L Alkaline Phosphatase (45-117) U/L Total Protein (6.4-8.2) gm/dl Albumin (3.4-5.0) gm/dl Albumin/Globulin Ratio (0.9-2) Ur Leukocyte Esterase (Negative) U Epithel Cells (Auto) (0-5) /lpf
[2020-11-23] MEDS: ONDANSETRON INJ 2 MG/ML 2 ML VIAL IV PRN (12:33)
--- NOTE | 2020-11-23 12:37 | Electrocardiogram Report ---
Test Reason : Blood Pressure : / mmHG Vent. Rate : 074 BPM Atrial Rate : 075 BPM P-R Int : 000 ms QRS Dur : 092 ms QT Int : 400 ms P-R-T Axes : 000 126 256 degrees QTc Int : 444 ms Atrial fibrillation Right axis deviation Incomplete right bundle branch block Abnormal ECG No previous ECGs available Confirmed by Sung Cotter ([id number]) on 11/23/2020 12:37:26 PM Referred By: REFERRED SELF Confirmed By:Jacques Cotter
[2020-11-23 14:58] LABS: Amylase Peritoneal Fluid 9 U/L
[2020-11-23] MEDS ORDERED: ANUSOL SUPP 1 EA PR PRN (15:01)
[2020-11-23] MEDS ORDERED: SODIUM CHLORIDE 0.65% NA SOLN 45 ML (OCEAN) STA (15:11)
[2020-11-23] MEDS ORDERED: SODIUM CHLORIDE 0.65% NA SOLN 45 ML (OCEAN) PRN (15:16)
[2020-11-23 15:44] LABS: Appearance Peritoneal Fluid CLOUDY; Basophils, Fluid 0 %; Color Peritoneal Fluid RED; Eosinophils, Fluid 1 %; Lymphocytes, Fluid 5 %; Mono,Macrophage,Mesothelial 52 %; Neutrophils, Fluid 42 %; RBC Peritoneal Fluid (A) 43000 /uL; WBC Peritoneal Fluid (A) 147 /ul (0-300)
[2020-11-23] MEDS ORDERED: Nursing to Pharmacy Communication SCH (17:45)
[2020-11-23] MEDS ORDERED: VANCOMYCIN HCL 1,000 MG in SODIUM CHLORIDE 0.9% 250 ML IV ONE (18:15)
[2020-11-23] MEDS: HYDROCORTISONE HC 2.5% CRM 30GM TUBE EXT PRN (19:55)
[2020-11-23] MEDS ORDERED: GENTAMICIN SULFATE 60 MG in DEXTROSE 5% 100 ML IV ONE (20:00)
[2020-11-23] MEDS: GABAPENTIN 100 MG CAP PO SCH (20:01)
[2020-11-24] MEDS: LEVOTHYROXINE SODIUM 125 MCG TABLET PO SCH (06:00)
[2020-11-24 06:48] LABS: Hematocrit (blood only) 26.3 % (37-47); Hemoglobin 8.3 g/dL (12.0-16.0); Mean Corpuscular Hemoglobin 30.3 pg (25-34); Mean Corpuscular Hgb Conc 31.6 g/dL (32-36); Mean Platelet Volume 9.5 fL (7.4-10.4); Platelet Count 281 K/uL (130-400); RDW Coefficient of Variation 23.4 % (11.5-14.5); Red Blood Count 2.74 M/uL (4.2-5.4); White Blood Count 5.93 K/uL (4.8-10.8)
[2020-11-24 07:37] LABS: BUN Creatinine Ratio 21.8 (10-20); Calcium 7.8 mg/dl (8.5-10.1); Creatinine Clr Calc Pharmacy 6.7 ml/min; Est GFR (African American) 8.8 ml/min; Est GFR (Non-African American) 7.6 ml/min; Magnesium 2.1 mg/dl (1.8-2.4); Phosphorus 8.1 mg/dl (2.5-4.9); Potassium 4.1 mmol/L (3.5-5.1)
[2020-11-24] MEDS: BACITRACIN OINT 15 GM TUBE TOP SCH ×5 (08:00→18:06)
[2020-11-24] MEDS: BUMETANIDE 1 MG TAB PO SCH ×3 (08:41→17:34)
[2020-11-24] MEDS: MULTIVITAMIN TAB PO SCH (08:41)
[2020-11-24] MEDS: BUDESONIDE EC 3 MG CAP PO SCH (08:41)
[2020-11-24] MEDS: PANTOprazole 40 MG TAB PO SCH (08:41)
[2020-11-24] MEDS: DOCUSATE SODIUM 100 MG CAP PO SCH ×2 (08:41→20:02)
[2020-11-24] MEDS: ASPIRIN 81 MG ECTAB PO SCH (08:41)
[2020-11-24] MEDS: ESCITALOPRAM OXALATE 10 MG TAB PO SCH (08:41)
[2020-11-24] MEDS: CHOLECALCIFEROL 1,000 UNITS 25 MCG TAB PO SCH (08:41)
[2020-11-24] MEDS: FLUCONAZOLE 100 MG TAB PO SCH (08:41)
[2020-11-24] MEDS: ARTIFICIAL TEARS OP SCH ×2 (08:42→20:00)
[2020-11-24] MEDS: DONEPEZIL HCL 10 MG TAB PO SCH (08:42)
[2020-11-24] MEDS: INSULIN ASPART 100 UNITS/ML 3 ML PEN SC SCH ×4 (08:44→20:44)
[2020-11-24 08:49] LABS: Hepatitis B Surface Ab Quant 32.29 mIU/mL (>or=10mIU/mL Immune); Hepatitis B Surface Antibody Immune
[2020-11-24] MEDS: CYANOCOBALAMIN 500 MCG TABLET (VITAMIN B-12) PO SCH (08:52)
[2020-11-24 09:00] LABS: Hepatitis B Surf Ag Rflx Conf Neg (Neg)
[2020-11-24] MEDS ORDERED: PHARMACY GLYCEMIC MGMT CONSULT PRN (09:25)
[2020-11-24] MEDS: ACETAMINOPHEN 325 MG TAB PO PRN ×2 (10:28→20:39)
[2020-11-24] MEDS: BUTT PASTE (ZINC OXIDE 16%) 171 APPLN/57 GM JAR EXT SCH ×2 (10:46→20:01)
[2020-11-24] MEDS: HYDROCORTISONE HC 2.5% CRM 30GM TUBE EXT PRN ×3 (10:47→20:04)
--- NOTE | 2020-11-24 10:48 | Nephrology Progress Note ---
Date of Service November 24, 2020 Assessment & Plan Admission and Anticipated Discharge Date Admission Date: November 22, 2020 Subjective No abd pain now. Also Blood in PD GENERAL: Elderly white female who appears to be chronically ill with frail appearance. She is not in overt respiratory distress. NECK: Supple. Jugular venous distention present. CHEST: Bilateral decreased breath sounds, occasional crackles at the bases. CVS: S1 and S2 regular. Systolic murmur heard. ABDOMEN: Distended. Abdominal wall edema present. EXTREMITIES: Show 2+ edema bilaterally. NEUROLOGIC: Normal speech. Awake, alert, oriented, moving all 4 extremities. LABORATORY TESTS: Hemoglobin 8.5. Sodium is 121, potassium 5.4, BUN 131, creatinine is 5.28. Chest x-ray shows pulmonary congestion. CT abdomen and pelvis shows abdominal wall edema, but there was not anything very concerning on the CT abdomen. ASSESSMENT AND PLAN: A 80-year-old female with endstage renal disease on chronic peritoneal dialysis, now transferred from [facility] where she had some bloody peritoneal dialysate, with abdominal distention. 1. Endstage renal disease. She does appear to be in need of prolonged dialysis. BUn and Creat and Sodium little better today. PD fluid analysis was equivocal for peritonitis. But will Treat it though. Sodium is low, consistent with hypervolemic hyponatremia. 2. IP vanc and gent today. 3. 12 hr dialysis overnight--half 2.5% and half 4.25%. 4 Patient's daughter wants her to be transferred to [facility] as she is from that area and gets her regular care there. I have no problem with the transfer. 5 medically better today as no Blood visible today and Abd pain better. Results & Data ([facility]) Vital Signs (Past 12 Hours) Vital Signs Temp Pulse Pulse Resp BP Pulse Ox 11/24/20 07:50 36.8 C 82 20 115/69 92 11/24/20 02:58 36.5 C 84 17 123/67 94 11/24/20 00:00 85 11/23/20 23:58 37 C 86 18 126/65 97
[2020-11-24] MEDS ORDERED: Nursing to Pharmacy Communication SCH ×2 (11:00→19:30)
--- NOTE | 2020-11-24 11:10 | Pharmacy Report ---
Pharmacy Glycemic Short Note 2 - Date of Service November 24, 2020 - Glycemic Short BSG Results (Last 24 hours): 11/23/20 11/23/20 11/23/20 12:06 16:21 20:06 Glucose POC Glucose 103 H 80 222 H 11/24/20 11/24/20 11/24/20 06:30 07:09 10:52 Glucose 281 H POC Glucose 345 H* 244 H OUTPATIENT ANTIDIABETIC REGIMEN: * Repaglinide 1 mg PO TID * Tradjenta 5 mg PO daily * NPH 4 units SC if BSG above 300 mg/dL while on steroids * HbA1c: 5.1% * However, this result is likely somewhat unreliable in ESRD patients d/t interactions between the A1c analyzing technique and high levels of urea in ESRD, reduced RBC life span, iron deficiency anemia, and EPO administration. HbA1c > 7.5% in ESRD patient may overestimate the extent of hyperglycemia in ESRD patients. ASSESSMENT: * LP is a 80 year old female with ESRD on chronic peritoneal dialysis, presented from [facility] secondary to abdominal pain w/ blood in peritoneal dialysate * BSGs yesterday of 109, 103, 80, and 222 mg/dL * Managed with correction factor only * Pharmacy consulted for glycemic management this morning for BSG of 345 mg/dL * Given patient's frailty and low A1c, will be very conservative with Novolog insulin dosing * Will likely hold basal insulin for now * Based on patient interview, she is not very familiar with medication regimen and is certainly reliant on family * Scheduled for peritoneal dialysis session today PLAN FOR INPATIENT GLYCEMIC CONTROL: * Hold outpatient oral diabetes medications * Basal insulin * hold * Bolus insulin * NovoLog per scale ACHS or Q6hrs while NPO * Goal Range: Low 110 mg/dL - High 140 mg/dL * Correction Factor: 30 mg/dL/unit * Nutritional / Prandial insulin per carb ratio of 1 unit per 12 grams CHO consumed PLAN FOR DISCHARGE: * Can likely continue outpatient regimen as long as patient is not experiencing hypoglycemia as an outpatient
--- NOTE | 2020-11-24 13:15 | Hospitalist Progress Note ---
Date of Service November 24, 2020 Assessment & Plan (1) Acute hyponatremia: (2) End stage renal disease: Bleeding from catheter site Abdominal bloating/Discomfort CT abd and pelvis does not show hemoperitoneum Peritoneal fluid analysis is equivocal . Hence patient getting antibiotics for possible peritonitis Nephro may do this IP Discussed with investigative assistant Continue peritoneal dialysis Hyponatremia likely due to fluid overload Monitor sodium with PD Hypothyroidism Continue levothyroxine Depression Continue Lexapro. Recent right hip surgery PT/OT History of CHF with preserved EF. Volume status by dialysis CAD S/P CABG. Continue aspirin, statin and b laura. Conjunctival hemorrhage on left eye. Continue artificial tears. UTI Complete fluconazole tx. DVT ppx- SCD Patient and daughter requesting about possible transfer to [facility] Called over to [place]. I was told a rep will call back to discuss that as they were all busy at the time Will try again later. Admission and Anticipated Discharge Date Admission Date: November 22, 2020 Subjective 80-year-old female with PMH of DM2, hypothyroidism, hyperlipidemia, hyperparathyroidism secondary to renal disease, diabetic polyneuropathy, mild nonproliferative diabetic retinopathy of both eyes without macular edema, chronic pancreatitis, lung nodules, history of ID, history of chronic heart failure with preserved EF, moderate to severe pulmonary hypertension, paroxysmal atrial fibrillation, hypertension, CAD, moderate tricuspid regurgitation, severe malnutrition, GERD, history of collagenous colitis, history of unspecified cirrhosis of liver, history of pressure ulcer unstageable, restless leg syndrome, osteoporosis, compression fracture of the spine, ESRD newly started on peritoneal dialysis in the past few months, depression, history of CABG, history of mild cognitive impairment, primary insomnia, recent hospitalization at [place] for right hip fracture and repair, with complicated hospital course associated with blood loss anemia requiring transfusion, vertebral body compression fracture, multiple episodes of urinary retention and urinary tract infections significant left subconjunctival hemorrhage, who presents from [facility] rehab for blood from dialysis catheter and abd bloating/discomfort. Noted to by hyponatremic on presentation Patient seen and examined this morning Reported some nausea earlier that has resolved Denied abd pain Reported some bloody tearing from left eye earlier Denied any fevers, chills Denied any chest pain, shortness of breath Review of Systems Review of Systems: All systems reviewed & are unremarkable except as noted in Subjective Physical Exam Constitutional: + ill appearing (chronic); no acute distress Eyes: Left conjunctival hemorrhage ENMT: external ear and nose normal, oropharynx normal Respiratory: normal respiratory effort, lungs clear to auscultation Cardiovascular: Rate/Rhythm: + irregularly irregular S1 S2 Gastrointestinal (Abdomen): normal bowel sounds, soft, nontender, no hepatosplenomegaly PD catheter in situ Skin: Stage 3 sacral ulcer Neurologic: PERRL, EOMI, accommodation nl, no face palsy, no dysarthria Psychiatric: A+Ox3, euthymic affect Results & Data Results & Data ([facility]) Vital Signs (Past 12 Hours) Vital Signs Temp Pulse Resp BP Pulse Ox 11/24/20 12:45 36.7 C 20 11/24/20 12:12 36.7 C 87 20 127/69 93 11/24/20 07:50 36.8 C 82 20 115/69 92 11/24/20 02:58 36.5 C 84 17 123/67 94 Laboratory Results Laboratory Results - last 24 hr 11/23/20 11/23/20 11/23/20 13:15 16:21 20:06 WBC RBC Hgb Hct MCV MCH MCHC RDW Std Deviation RDW Coeff of Mariaelena Plt Count MPV Sodium Potassium Chloride Carbon Dioxide Anion Gap BUN Creatinine Est Cr Clr Drug Dosing Est GFR ( Amer) Est GFR (Non-Af Amer) BUN/Creatinine Ratio Glucose POC Glucose 80 222 H Calcium Phosphorus Magnesium Fluid Neutrophils % 42 Fluid Lymphocytes % 5 Fluid Eosinophils % 1 Fluid Basophils % 0 Fluid Meso/Macro/[place] % 52 Fluid Comment Peritoneal Color RED Peritoneal Appearance CLOUDY Peritoneal WBC 147 Peritoneal [place] [id number] Peritoneal Amylase 9 Hep Bs Antigen Hep Bs Antibody Hep Bs Antibody, Quant 11/24/20 11/24/20 11/24/20 06:30 06:30 06:30 WBC 5.93 RBC 2.74 L Hgb 8.3 L Hct 26.3 L MCV 96.0 MCH 30.3 MCHC 31.6 L RDW Std Deviation 81.0 H RDW Coeff of Mariaelena 23.4 H Plt Count 281 MPV 9.5 Sodium 125 L Potassium 4.1 D Chloride 88 L Carbon Dioxide 20 L Anion Gap 17.0 H BUN 110 H Creatinine 5.05 H* Est Cr Clr Drug Dosing 6.7 Est GFR ( Amer) 8.8 Est GFR (Non-Af Amer) 7.6 BUN/Creatinine Ratio 21.8 H Glucose 281 H POC Glucose Calcium 7.8 L Phosphorus 8.1 H Magnesium 2.1 Fluid Neutrophils % Fluid Lymphocytes % Fluid Eosinophils % Fluid Basophils % Fluid Meso/Macro/[place] % Fluid Comment Peritoneal Color Peritoneal Appearance Peritoneal WBC Peritoneal RBC Peritoneal Amylase Hep Bs Antigen Neg Hep Bs Antibody Immune Hep Bs Antibody, Quant 32.29 11/24/20 11/24/20 11/24/20 07:09 10:52 11:32 WBC RBC Hgb Hct MCV MCH MCHC RDW Std Deviation RDW Coeff of Mariaelena Plt Count MPV Sodium Potassium Chloride Carbon Dioxide Anion Gap BUN Creatinine Est Cr Clr Drug Dosing Est GFR ( Amer) Est GFR (Non-Af Amer) BUN/Creatinine Ratio Glucose POC Glucose 345 H* 244 H 218 H Calcium Phosphorus Magnesium Fluid Neutrophils % Fluid Lymphocytes % Fluid Eosinophils % Fluid Basophils % Fluid Meso/Macro/[place] % Fluid Comment Peritoneal Color Peritoneal Appearance Peritoneal WBC Peritoneal RBC Peritoneal Amylase Hep Bs Antigen Hep Bs Antibody Hep Bs Antibody, Quant
[2020-11-24] MEDS ORDERED: PERITONEAL 2.5% IP SCH ×2 (14:00→22:00)
[2020-11-24] MEDS ORDERED: VANCOMYCIN HCL IP SCH ×2 (14:00→22:00)
[2020-11-24] MEDS ORDERED: GENTAMICIN SULFATE IP SCH ×2 (14:00→22:00)
[2020-11-24] MEDS ORDERED: DIALYSIS IP SCH ×2 (14:00→22:00)
--- NOTE | 2020-11-24 19:28 | Surgery Consultation ---
Date of Consultation November 24, 2020 Assessment & Plan (1) Sacral decubitus ulcer: pt is a 80 year-old female who is consulted for sacral ulcer IMP; sacral ulcer Plan, no redness, no cellulitis around ulcer, consult wound care nurse for dressing change once a day, may try chemical debridement on ulcer, may do MRI to R/O osteomyelitis, will F/U, Thanks, Present on Admission?: Yes History of Present Illness Attending Physician: Shaila Walden MD CHIEF COMPLAINT: Missed dialysis and abdominal bloating. HISTORY OF PRESENT ILLNESS: A 80-year-old female with past medical history significant for type 2 diabetes, hypothyroidism, hyperlipidemia, hyperparathyroidism secondary to renal disease, diabetic polyneuropathy, mild nonproliferative diabetic retinopathy of both eyes without macular edema associated with type 2 diabetes, chronic pancreatitis, lung nodules , history of UT, history of chronic heart failure with preserved EF, moderate to severe pulmonary hypertension, paroxysmal atrial fibrillation, hypertension, CAD, moderate tricuspid regurgitation, severe malnutrition, GERD, history of collagenous colitis, history of unspecified cirrhosis of liver, history of pressure ulcer unstageable, restless leg syndrome, osteoporosis, compression fracture of the spine, ESRD on peritoneal dialysis, depression, history of CABG, history of mild cognitive impairment, primary insomnia, history of recent conjunctival hemorrhage of left eye. The patient was recently at [place] for right hip fracture. The patient is status post right cemented hip arthroplasty in November 03 with orthopedics . complicated by postoperative blood loss anemia, required 2 units of PRBC, and also she has L5 vertebral body compression fractures evaluated by neurosurgery and deemed stable for conservative management and she also found to have possible [employer]IGHWAY [employer]PER[employer]OR was consulted with out patient followup and possibly transvaginal ultrasound recommended, urinary tract infection on flucanozole until 11/29, she also had urinary retention requiring multiple straight catheterizations and left eye subconjunctival hemorrhage, likely contributed by uremia on artificial tears as recommended by ophthalmology. She was discharged to rehab on 11/19/2020 and yesterday she had some blood while doing peritoneal dialysis and dialysis was not done. Today she also is complaining of bloating and nausea, not feeling well, tired. Brought in here and Nephrology wanted ct abd/pelvis with IV contrast which was done, which was reported unremarkable and labs shows sodium 123.Plan for dialysis in a.m. The patient's left eye subconjunctival hemorrhage is seen, there is no blurred vision, no headache, no earache, no runny nose, no sore throat, no cough, no fever, no chills, no chest pain. Has some shortness of breath and nausea, bloating is better. She says she has on and off diarrhea and constipation . She sometimes makes urine. Hemodynamically stable. I ( Duane Munoz MD ) got a call for consult sacral ulcer, I reviewed pt's H/P, labs, CT scan with pt, nurse at bedside, ALLERGIES: PENICILLIN, ENTRESTO, BACTRIM, TETRACYCLINE, VANCOMYCIN. PAST MEDICAL HISTORY: As mentioned above. PAST SURGICAL HISTORY: CABG, AV access, , colonoscopy, coronary angiography with stent, coronary artery dilatation, dilatation and curettage, EGDs, flexible sigmoidoscopy, diagnostic laparoscopy, lumbar hemilaminectomy, right partial hip replacement, appendectomy, cataract surgery, removal of lumbar spine lamina, surgical removal of erupted tooth,upper endoscopy. MEDICATIONS: The patient currently on aspirin 81 mg p.o. daily, Bacitracin topically, balsalazide 2250mg budenoside 3mg po daily, bumex 4mg in am, 3mg noon and 3mg pm Restasis eye drops, vitamin D 25 mcg p.o. daily, vitamin B12 1000 mcg p.o. daily, Colace 100 mg p.o. b.i.d., donepezil 10 mg p.o. daily, Lexapro 10 mg p.o. daily, [id number] mg p.o. daily until , gabapentin 200 mg p.o. at bedtime, Humulin R U-500 2 units subcutaneous p.m., levothyroxine 125 mcg p.o. daily, Tradjenta 5 mg p.o. daily, melatonin 3 mg p.o. at bedtime p.r.n., multivitamin 1 tablet p.o. daily, nitroglycerin 0.4 mg sublingual p.r.n., Protonix 40 mg p.o. daily,repaglinide 1mg p.o. t.i.d., ropinirole 0.5 mg p.o. at bedtime, zinc oxide application topically b.i.d. FAMILY HISTORY: Significant for history of Alzheimer's disease, dermatomyositis, coronary artery disease. Father has coronary artery disease, emphysema, heart disorder, hypertension. Mother has stroke, hypertension and heart disorder. SOCIAL HISTORY: Currently at rehab,. No smoking, no alcohol, no drug use. REVIEW OF SYMPTOMS: As per HPI. Rest of review of systems is negative. Allergies Allergy/AdvReac Type Severity Reaction Status Date / Time angiotensin II acetate, human Allergy Unknown Unverified 11/22/20 21:44 Penicillins Allergy Unknown Unverified 11/22/20 21:44 sacubitril [From Entresto] Allergy Unknown Unverified 11/22/20 21:44 sulfamethoxazole Allergy Unknown Unverified 11/22/20 21:44 [From Bactrim] Tetracyclines Allergy Unknown Unverified 11/22/20 21:44 trimethoprim [From Bactrim] Allergy Unknown Unverified 11/22/20 21:44 valsartan [From Entresto] Allergy Unknown Unverified 11/22/20 21:44 vancomycin Allergy Unknown Unverified 11/22/20 21:44 Home Medications Medication Instructions Recorded Confirmed Type aspirin [Aspirin Low Dose] 81 mg PO DAILY 11/22/20 11/22/20 History bacitracin 1 applic TOPICAL 5XD 11/22/20 11/22/20 History balsalazide 2,250 mg PO BID 11/22/20 11/22/20 History budesonide [Entocort EC] 3 mg PO DAILY 11/22/20 11/22/20 History bumetanide 4 mg PO USEASDIRECTD 11/22/20 11/22/20 History carboxymethylcellulose sodium 1 drp OPHTHALMIC (EYE) BID 11/22/20 11/22/20 History [Refresh Tears] cholecalciferol (vitamin D3) 25 mcg PO DAILY 11/22/20 11/22/20 History [Vitamin D3] cyanocobalamin (vitamin B-12) 1,000 mcg PO DAILY 11/22/20 11/22/20 History docusate sodium 100 mg PO BID 11/22/20 11/22/20 History donepezil 10 mg PO DAILY 11/22/20 11/22/20 History escitalopram oxalate 10 mg PO DAILY 11/22/20 11/22/20 History fluconazole 100 mg PO DAILY 11/22/20 11/22/20 History gabapentin 200 mg PO HS 11/22/20 11/22/20 History gentamicin 1 applic TOPICAL QID 11/22/20 11/22/20 History levothyroxine 125 mcg PO DAILY 11/22/20 11/22/20 History linagliptin [Tradjenta] 5 mg PO DAILY 11/22/20 11/22/20 History melatonin 3 mg PO HS PRN 11/22/20 11/22/20 History multivitamin 1 tab PO DAILY 11/22/20 11/22/20 History nitroglycerin 0.4 mg SUBLINGUAL DAILY PRN 11/22/20 11/22/20 History pantoprazole 40 mg PO DAILY 11/22/20 11/22/20 History repaglinide 1 mg PO TID 11/22/20 11/22/20 History ropinirole 0.5 mg PO HS 11/22/20 11/22/20 History zinc oxide 1 applic TOPICAL BID 11/22/20 11/22/20 History Patient History Social History Smoking Status: Never smoker Second Hand Exposure: Yes; Hx Alcohol Use: No Hx Substance Use: No Preferred Language: Georgian Communication Ability: Effective Post Hole Digger Required: No Beliefs That Will Affect Care: Jain Current Living Situation: Family Current Living Situation Comment: Lives at home with daughter Ewelina Other Information That Helps Us Care for You: No Feels Safe at Home: Yes Safety Concerns: Feels Safe At This Time Assistive Devices: Walker Physical Exam Constitutional: WD/WN, vitals as above Eyes: left eye hematoma, Neck: trachea midline, no thyromegaly Respiratory: normal respiratory effort, lungs clear to auscultation normal respiratory effort Cardiovascular: RRR, no murmur, no edema Gastrointestinal (Abdomen): normal bowel sounds, soft, nontender, no hepatosplenomegaly Skin: sacral ulcer size 1.5x 2.5cm, stage II-III, no redness, no drainage, Neurologic: awake Results & Data ([facility]) Vital Signs (Past 12 Hours) Vital Signs Temp Pulse Pulse Resp BP Pulse Ox 11/24/20 16:10 36.7 C 78 20 128/77 95 11/24/20 16:00 80 11/24/20 12:45 36.7 C 20 11/24/20 12:12 36.7 C 87 20 127/69 93 11/24/20 08:00 80 11/24/20 07:50 36.8 C 82 20 115/69 92 Laboratory Results Abnormal lab results 11/23/20 11/24/20 11/24/20 Range/Units 20:06 06:30 06:30 RBC 2.74 L (4.2-5.4) M/uL Hgb 8.3 L (12.0-16.0) g/dL Hct 26.3 L (37-47) % MCHC 31.6 L (32-36) g/dL RDW Std Deviation 81.0 H (36.4-46.3) fL RDW Coeff of Mariaelena 23.4 H (11.5-14.5) % Sodium 125 L (136-145) mmol/L Chloride 88 L (98-107) mmol/L Carbon Dioxide 20 L (21-32) mmol/L Anion Gap 17.0 H (3-11) BUN 110 H (7-18) mg/dl Creatinine 5.05 H* (0.6-1.2) mg/dl BUN/Creatinine Ratio 21.8 H (10-20) Glucose 281 H (70-99) mg/dl POC Glucose 222 H (70-99) mg/dl Calcium 7.8 L (8.5-10.1) mg/dl Phosphorus 8.1 H (2.5-4.9) mg/dl 11/24/20 11/24/20 11/24/20 Range/Units 07:09 10:52 11:32 RBC (4.2-5.4) M/uL Hgb (12.0-16.0) g/dL Hct (37-47) % MCHC (32-36) g/dL RDW Std Deviation (36.4-46.3) fL RDW Coeff of Mariaelena (11.5-14.5) % Sodium (136-145) mmol/L Chloride (98-107) mmol/L Carbon Dioxide (21-32) mmol/L Anion Gap (3-11) BUN (7-18) mg/dl Creatinine (0.6-1.2) mg/dl BUN/Creatinine Ratio (10-20) Glucose (70-99) mg/dl POC Glucose 345 H* 244 H 218 H (70-99) mg/dl Calcium (8.5-10.1) mg/dl Phosphorus (2.5-4.9) mg/dl 11/24/20 Range/Units 16:32 RBC (4.2-5.4) M/uL Hgb (12.0-16.0) g/dL Hct (37-47) % MCHC (32-36) g/dL RDW Std Deviation (36.4-46.3) fL RDW Coeff of Mariaelena (11.5-14.5) % Sodium (136-145) mmol/L Chloride (98-107) mmol/L Carbon Dioxide (21-32) mmol/L Anion Gap (3-11) BUN (7-18) mg/dl Creatinine (0.6-1.2) mg/dl BUN/Creatinine Ratio (10-20) Glucose (70-99) mg/dl POC Glucose 222 H (70-99) mg/dl Calcium (8.5-10.1) mg/dl Phosphorus (2.5-4.9) mg/dl
[2020-11-24] MEDS: GABAPENTIN 100 MG CAP PO SCH (20:00)
[2020-11-24] MEDS: rOPINIRole HCL 0.25 MG TABLET PO SCH (20:00)
[2020-11-24] MEDS: BALSALAZIDE PO SCH (20:01)
[2020-11-24] MEDS: ONDANSETRON INJ 2 MG/ML 2 ML VIAL IV PRN (21:18)
[2020-11-24 22:46] LABS: Appearance Peritoneal Fluid CLEAR; Basophils, Fluid 0 %; Color Peritoneal Fluid COLORLESS; Eosinophils, Fluid 0 %; Lymphocytes, Fluid 31 %; Mono,Macrophage,Mesothelial 68 %; Neutrophils, Fluid 1 %; RBC Peritoneal Fluid (A) < 3000 /uL; WBC Peritoneal Fluid (A) 23 /ul (0-300)
[2020-11-25] MEDS: INSULIN ASPART 100 UNITS/ML 3 ML PEN SC SCH ×4 (00:25→12:27)
[2020-11-25] MEDS: BACITRACIN OINT 15 GM TUBE TOP SCH ×3 (04:40→12:27)
[2020-11-25] MEDS: HYDROCORTISONE HC 2.5% CRM 30GM TUBE EXT PRN (04:41)
[2020-11-25] MEDS: LEVOTHYROXINE SODIUM 125 MCG TABLET PO SCH (04:42)
[2020-11-25 06:19] LABS: Hematocrit (blood only) 28.3 % (37-47); Hemoglobin 8.9 g/dL (12.0-16.0); Mean Corpuscular Hemoglobin 30.4 pg (25-34); Mean Corpuscular Hgb Conc 31.4 g/dL (32-36); Mean Corpuscular Volume 96.6 fL (80-100); Mean Platelet Volume 8.8 fL (7.4-10.4); Platelet Count 270 K/uL (130-400); RDW Coefficient of Variation 23.6 % (11.5-14.5); RDW Standard Deviation 81.6 fL (36.4-46.3); Red Blood Count 2.93 M/uL (4.2-5.4); White Blood Count 7.08 K/uL (4.8-10.8)
[2020-11-25 06:52] LABS: BUN Creatinine Ratio 19.9 (10-20); Creatinine Clr Calc Pharmacy 6.7 ml/min; Est GFR (African American) 9.2 ml/min; Est GFR (Non-African American) 7.9 ml/min; Potassium 3.5 mmol/L (3.5-5.1)
[2020-11-25] MEDS: DONEPEZIL HCL 10 MG TAB PO SCH (08:16)
[2020-11-25] MEDS: ASPIRIN 81 MG ECTAB PO SCH (08:16)
[2020-11-25] MEDS: PANTOprazole 40 MG TAB PO SCH (08:17)
[2020-11-25] MEDS: ESCITALOPRAM OXALATE 10 MG TAB PO SCH (08:17)
[2020-11-25] MEDS: CYANOCOBALAMIN 500 MCG TABLET (VITAMIN B-12) PO SCH (08:17)
[2020-11-25] MEDS: BUMETANIDE 1 MG TAB PO SCH ×2 (08:17→12:32)
[2020-11-25] MEDS: CHOLECALCIFEROL 1,000 UNITS 25 MCG TAB PO SCH (08:17)
[2020-11-25] MEDS: MULTIVITAMIN TAB PO SCH (08:17)
[2020-11-25] MEDS: FLUCONAZOLE 100 MG TAB PO SCH (08:17)
[2020-11-25] MEDS: BUDESONIDE EC 3 MG CAP PO SCH (08:18)
[2020-11-25] MEDS: BALSALAZIDE PO SCH ×2 (08:18→13:35)
[2020-11-25] MEDS: ARTIFICIAL TEARS OP SCH (08:21)
--- NOTE | 2020-11-25 08:21 | Pharmacy Report ---
Pharmacy Glycemic Short Note 2 - Date of Service November 25, 2020 - Glycemic Short BSG Results (Last 24 hours): 11/24/20 11/24/20 11/24/20 10:52 11:32 16:32 Glucose POC Glucose 244 H 218 H 222 H 11/24/20 11/24/20 11/25/20 20:22 23:51 04:07 Glucose POC Glucose 151 H 262 H 192 H 11/25/20 11/25/20 05:57 07:17 Glucose 149 H POC Glucose 198 H OUTPATIENT ANTIDIABETIC REGIMEN: * Repaglinide 1 mg PO TID * Tradjenta 5 mg PO daily * NPH 4 units SC if BSG above 300 mg/dL while on steroids * HbA1c: 5.1% * However, this result is likely somewhat unreliable in ESRD patients d/t interactions between the A1c analyzing technique and high levels of urea in ESRD, reduced RBC life span, iron deficiency anemia, and EPO administration. HbA1c > 7.5% in ESRD patient may overestimate the extent of hyperglycemia in ESRD patients. ASSESSMENT: 11/25 * BSGs elevated yesterday, ranging 151-345 mg/dL * Utilized bolus insulin q4h yesterday in light of patient's frailty and uncertainty with typical insulin needs * Will tighten carb ratio today * Fasting BSG of 198 mg/dL this morning - will initiate low-dose basal insulin today * Patient on chronic peritoneal dialysis, currently receiving intraperitoneal vancomycin/gentamicin via dwell * May help to explain elevated BSGs 11/24 * LP is a 80 year old female with ESRD on chronic peritoneal dialysis, presented from [facility] rehab secondary to abdominal pain w/ blood in peritoneal dialysate * BSGs yesterday of 109, 103, 80, and 222 mg/dL * Managed with correction factor only * Pharmacy consulted for glycemic management this morning for BSG of 345 mg/dL * Given patient's frailty and low A1c, will be very conservative with Novolog insulin dosing * Will likely hold basal insulin for now * Based on patient interview, she is not very familiar with medication regimen and is certainly reliant on family * Scheduled for peritoneal dialysis session today PLAN FOR INPATIENT GLYCEMIC CONTROL: * Hold outpatient oral diabetes medications * Basal insulin * Lantus 5 units SC BID * Bolus insulin * NovoLog per scale ACHS or Q6hrs while NPO * Goal Range: Low 120 mg/dL - High 150 mg/dL * Correction Factor: 30 mg/dL/unit * Nutritional / Prandial insulin per carb ratio of 1 unit per 9 grams CHO consumed PLAN FOR DISCHARGE: * Can likely continue outpatient regimen as long as patient is not experiencing hypoglycemia as an outpatient
[2020-11-25] MEDS: BUTT PASTE (ZINC OXIDE 16%) 171 APPLN/57 GM JAR EXT SCH (08:22)
[2020-11-25] MEDS: DOCUSATE SODIUM 100 MG CAP PO SCH (08:23)
[2020-11-25] MEDS ORDERED: GENTAMICIN SULFATE 0.1% CR 15 GM TUBE EXT SCH (09:00)
[2020-11-25] MEDS ORDERED: INSULIN GLARGINE SOLOSTAR 100 UNITS/ML 3 ML PEN SC SCH (09:00)
--- NOTE | 2020-11-25 09:11 | Dialysis Progress Note ---
Date of Service November 25, 2020 Assessment & Plan Admission and Anticipated Discharge Date Admission Date: November 22, 2020 Subjective Seen during PD exchanges. No abd pain now. Also Blood in PD resolved. GENERAL: Elderly white female who appears to be chronically ill with frail appearance. She is not in overt respiratory distress. NECK: Supple. Jugular venous distention present. CHEST: Bilateral decreased breath sounds, occasional crackles at the bases. CVS: S1 and S2 regular. Systolic murmur heard. ABDOMEN: Distended. Abdominal wall edema present. EXTREMITIES: Show 1+ edema bilaterally in the thigh area. Much less. NEUROLOGIC: Normal speech. Awake, alert, oriented, moving all 4 extremities. LABORATORY TESTS: Labs better. Both BUN and Na. hgb low ASSESSMENT AND PLAN: A 80-year-old female with endstage renal disease on chronic peritoneal dialysis, now transferred from [facility] where she had some bloody peritoneal dialysate, with abdominal distention. 1. Endstage renal disease. --Labs better. Less fluid overload now. Na rising and BUn dropping 2. IP vanc and gent--check level as per pharmacy and now ID. Most likely her levels will be quite high given her tiny body size. Currently getting IP abx. . 3. 12 hr dialysis overnight--half 2.5% and half 4.25%--4 exchanges 4 Patient's daughter wants her to be transferred to [facility] [place] [facility] as she is from that area and gets her regular care there. I have no problem with the transfer. 5 Medically better today as no Blood visible today and Abd pain better. Also treatment with Abx is presumptive and more on technicality than anything. Total WBC in PD fluid barely met the criteria for PD related peritonitis. Results & Data ([facility]) Vital Signs (Past 12 Hours) Vital Signs Temp Pulse Pulse Resp BP Pulse Ox 11/25/20 08:31 36.6 C 79 18 140/82 95 11/25/20 04:16 36.7 C 73 18 133/70 93 11/25/20 00:00 72 11/24/20 23:47 36.8 C 78 20 128/66 96
[2020-11-25] MEDS: ACETAMINOPHEN 325 MG TAB PO PRN (11:02)
[2020-11-25] MEDS ORDERED: VANCOMYCIN CONSULT ACTIVE PRN (11:07)
[2020-11-25] MEDS ORDERED: EPOETIN ALFA 20,000 UNITS/ML VIAL SQ ONE (12:15)
--- NOTE | 2020-11-25 12:53 | Discharge Summary ---
Date of Service November 25, 2020 Admission HPI Per Admitting Provider A 80-year-old female with past medical history significant for type 2 diabetes, hypothyroidism, hyperlipidemia, hyperparathyroidism secondary to renal disease, diabetic polyneuropathy, mild nonproliferative diabetic retinopathy of both eyes without macular edema associated with type 2 diabetes, chronic pancreatitis, lung nodules , history of MA, history of chronic heart failure with preserved EF, moderate to severe pulmonary hypertension, paroxysmal atrial fibrillation, hypertension, CAD, moderate tricuspid regurgitation, severe malnutrition, GERD, history of collagenous colitis, history of unspecified cirrhosis of liver, history of pressure ulcer unstageable, restless leg syndrome, osteoporosis, compression fracture of the spine, ESRD on peritoneal dialysis, depression, history of CABG, history of mild cognitive impairment, primary insomnia, history of recent conjunctival hemorrhage of left eye. The patient was recently at [place] for right hip fracture. The patient is status post right cemented hip arthroplasty in November 03 with orthopedics . 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 She was discharged to rehab on 11/19/2020 and yesterday she had some blood while doing peritoneal dialysis and dialysis was not done. Today she also is complaining of bloating and nausea, not feeling well, tired. Brought in here and Nephrology wanted ct abd/pelvis with IV contrast which was done, which was reported unremarkable and labs shows sodium 123.Plan for dialysis in a.m. The patient's left eye subconjunctival hemorrhage is seen, there is no blurred vision, no headache, no earache, no runny nose, no sore throat, no cough, no fever, no chills, no chest pain. Has some shortness of breath and nausea, bloating is better. She says she has on and off diarrhea and constipation . She sometimes makes urine. Hemodynamically stable. Admission Exam Per Admitting Provider PHYSICAL EXAMINATION: GENERAL: The patient is obese, not in acute distress. VITAL SIGNS: Temperature 36.9, pulse 86, respiratory rate 25, blood pressure 131/70, pulse ox 97% on room air. HEENT: Conjunctival hemorrhage seen on the left eye. Pupils equal, round, and reactive to light. Oral mucosa moist. NECK: No JVD. No neck masses. CARDIOVASCULAR: S1, S2 heard, regular rate and rhythm, no murmur, no gallop. RESPIRATORY SYSTEM: Normal AP diameter. No accessory muscle use. No wheezing, no crackles. ABDOMEN: Soft, bowel sounds present, nontender. No guarding, no rigidity. Peritoneal catheter site, no drainage seen, no erythema seen. CENTRAL NERVOUS SYSTEM: alert and oriented. speech clear, no facial droop, insight good, moves extremities. EXTREMITIES: No edema, no erythema seen. Skin Sacra pressure ulcere stage 2/3 seen Principal Diagnosis ESRD on peritoneal dialysis with hemoperitoneum that has resolved Acute hyponatremia Recent right hip surgery UTI Stage III sacral ulcer present on admission Stage II pressure ulcer of back, present on admission Splenic infarction Discharge Exam CONSTITUTIONAL: thin ,frail, vitals as above, NAD EYES: normal conjunctivae, no scleral icterus ENT: external ear and nose normal, MMM RESPIRATORY: clear to auscultation bilaterally, no crackles, rales or wheezes, normal respiratory effort CARDIOVASCULAR: regular rate and rhythm, S1 and 2 heard without murmurs, gallops or rubs, no JVD, no peripheral edema GASTROINTESTINAL: soft, nontender, nondistended, no guarding, dialysis catheter in good position without surrounding drainage or erythema. MUSCULOSKELETAL: generalized weakness, requires assistance to shift in bed, head is normocephalic and atraumatic SKIN: warm and dry, Stage II decubitus ulcer on mid back, Stage III sacral de cubitus ulcer with surrounding redness from pressure. NEUROLOGIC: CN 2-12 grossly intact, normal cognition, normal speech PSYCHIATRIC: alert cooperative and oriented Discharge Data Allergies Allergy/AdvReac Type Severity Reaction Status Date / Time angiotensin II acetate, human Allergy Unknown Unverified 11/22/20 21:44 Penicillins Allergy Unknown Unverified 11/22/20 21:44 sacubitril [From Entresto] Allergy Unknown Unverified 11/22/20 21:44 sulfamethoxazole Allergy Unknown Unverified 11/22/20 21:44 [From Bactrim] Tetracyclines Allergy Unknown Unverified 11/22/20 21:44 trimethoprim [From Bactrim] Allergy Unknown Unverified 11/22/20 21:44 valsartan [From Entresto] Allergy Unknown Unverified 11/22/20 21:44 vancomycin Allergy Unknown Unverified 11/22/20 21:44 Consultations 11/23/20 08:00 Consult Nephrology Routine 11/24/20 15:44 Consult General Surgery Routine Ordered Studies Laboratory Results WBC 7.08 K/uL (4.8-10.8) 11/25/20 05:57 RBC 2.93 M/uL (4.2-5.4) L 11/25/20 05:57 Hgb 8.9 g/dL (12.0-16.0) L 11/25/20 05:57 Hct 28.3 % (37-47) L 11/25/20 05:57 MCV 96.6 fL (80-100) 11/25/20 05:57 MCH 30.4 pg (25-34) 11/25/20 05:57 MCHC 31.4 g/dL (32-36) L 11/25/20 05:57 RDW Std Deviation 81.6 fL (36.4-46.3) H 11/25/20 05:57 RDW Coeff of Mariaelena 23.6 % (11.5-14.5) H 11/25/20 05:57 Plt Count 270 K/uL (130-400) 11/25/20 05:57 MPV 8.8 fL (7.4-10.4) 11/25/20 05:57 Immature Gran % (Auto) 0.9 % 11/23/20 05:33 Neut % (Auto) 80.6 % 11/23/20 05:33 Lymph % (Auto) 6.6 % 11/23/20 05:33 [place] % (Auto) 11.6 % 11/23/20 05:33 Eos % (Auto) 0.2 % 11/23/20 05:33 Baso % (Auto) 0.1 % 11/23/20 05:33 Neut # (Auto) 7.17 K/uL (1.4-6.5) H 11/23/20 05:33 Lymph # (Auto) 0.59 K/uL (1.2-3.4) L 11/23/20 05:33 [place] # (Auto) 1.03 K/uL (0.11-0.59) H 11/23/20 05:33 Eos # (Auto) 0.02 K/uL (0-0.5) 11/23/20 05:33 Baso # (Auto) 0.01 K/uL (0-0.2) 11/23/20 05:33 Immature Gran # (Auto) 0.08 K/uL (0.00-0.02) H 11/23/20 05:33 Giant Platelets 2+ 11/22/20 19:39 Polychromasia 1+ 11/23/20 05:33 Hypochromasia Present 11/22/20 19:39 Basophilic Stippling 1+ 11/23/20 05:33 Anisocytosis Present 11/23/20 05:33 PT 10.7 Seconds (9.0-12.0) 11/22/20 19:39 INR 1.1 (0.9-1.1) 11/22/20 19:39 APTT 31.8 Seconds (21.0-31.0) H 11/22/20 19:39 PTT Ratio 1.2 11/22/20 19:39 Sodium 129 mmol/L (136-145) L 11/25/20 05:57 Potassium 3.5 mmol/L (3.5-5.1) 11/25/20 05:57 Chloride 91 mmol/L (98-107) L 11/25/20 05:57 Carbon Dioxide 27 mmol/L (21-32) 11/25/20 05:57 Anion Gap 12.0 (3-11) H 11/25/20 05:57 BUN 98 mg/dl (7-18) H 11/25/20 05:57 Creatinine 4.89 mg/dl (0.6-1.2) H* 11/25/20 05:57 Est Cr Clr Drug Dosing 6.7 ml/min 11/25/20 05:57 Est GFR ( Amer) 9.2 ml/min 11/25/20 05:57 Est GFR (Non-Af Amer) 7.9 ml/min 11/25/20 05:57 BUN/Creatinine Ratio 19.9 (10-20) 11/25/20 05:57 Glucose 149 mg/dl (70-99) H 11/25/20 05:57 POC Glucose 319 mg/dl (70-99) H* 11/25/20 11:09 Estimat Average Glucose 100 mg/dl 11/23/20 05:33 Hemoglobin A1c 5.1 % (4.5-5.6) 11/23/20 05:33 Calcium 8.0 mg/dl (8.5-10.1) L 11/25/20 05:57 Phosphorus 8.1 mg/dl (2.5-4.9) H 11/24/20 06:30 Magnesium 2.1 mg/dl (1.8-2.4) 11/24/20 06:30 Total Bilirubin 0.4 mg/dl (0.2-1) 11/22/20 19:39 AST 49 U/L (15-37) H 11/22/20 19:39 ALT 16 U/L (12-78) 11/22/20 19:39 Alkaline Phosphatase 339 U/L (45-117) H 11/22/20 19:39 Total Protein 5.8 gm/dl (6.4-8.2) L 11/22/20 19:39 Albumin 2.0 gm/dl (3.4-5.0) L 11/22/20 19:39 Globulin 3.8 gm/dl (2.5-4.0) 11/22/20 19:39 Albumin/Globulin Ratio 0.5 (0.9-2) L 11/22/20 19:39 Urine Color Dark Yellow 11/22/20 21:40 Urine Appearance Clear (Clear) 11/22/20 21:40 Urine pH 5.0 (4.5-7.5) 11/22/20 21:40 Ur Specific [place] 1.018 (1.000-1.030) 11/22/20 21:40 Urine Protein Negative (Negative) 11/22/20 21:40 Urine Glucose (UA) Negative (Negative) 11/22/20 21:40 Urine Ketones Negative (Negative) 11/22/20 21:40 Urine Blood Negative (Negative) 11/22/20 21:40 Urine Nitrite Negative (Negative) 11/22/20 21:40 Urine Bilirubin Negative (Negative) 11/22/20 21:40 Urine Urobilinogen Negative (Negative) 11/22/20 21:40 Ur Leukocyte Esterase Trace (Negative) H 11/22/20 21:40 Urine WBC (Auto) 1-5 /hpf (0-5) 11/22/20 21:40 Urine RBC (Auto) 0-4 /hpf (0-4) 11/22/20 21:40 U Hyaline Cast (Auto) 0 /lpf (0-5) 11/22/20 21:40 U Epithel Cells (Auto) 5-10 /lpf (0-5) H 11/22/20 21:40 Urine Bacteria (Auto) Negative (Negative) 11/22/20 21:40 Urine Yeast Not Reportable 11/22/20 21:40 Fluid Neutrophils % 1 % 11/24/20 21:05 Fluid Lymphocytes % 31 % 11/24/20 21:05 Fluid Eosinophils % 0 % 11/24/20 21:05 Fluid Basophils % 0 % 11/24/20 21:05 Fluid [place] % 68 % 11/24/20 21:05 Fluid Comment 11/24/20 21:05 Peritoneal Color COLORLESS 11/24/20 21:05 Peritoneal Appearance CLEAR 11/24/20 21:05 Peritoneal WBC 23 /ul (0-300) 11/24/20 21:05 Peritoneal RBC < 3000 /uL 11/24/20 21:05 Peritoneal Amylase 9 U/L 11/23/20 13:15 Nasal Screen MRSA (PCR) Negative (Negative) 11/23/20 01:15 COVID-19 Eval Order Covid19 at [facility] 11/22/20 19:43 SARS-CoV-2 (PCR) NEGATIVE (Negative) 11/22/20 19:43 Hep Bs Antigen Neg (Neg) 11/24/20 06:30 Hep Bs Antibody Immune 11/24/20 06:30 Hep Bs Antibody, Quant 32.29 mIU/mL (>or=10mIU/mL Immune) 11/24/20 06:30 Blood Type O Positive 11/22/20 19:39 Antibody Screen NEGATIVE 11/22/20 19:39 Impressions Abdomen/Pelvis CT 11/22/20 21:[address] WITH IV CONTRAST CT DOSE: 262.17 mGy.cm HISTORY: blood in peritoneal dialysis fluid TECHNIQUE: Multiaxial CT images of the abdomen and pelvis were performed following the use of intravenous contrast. A dose lowering technique was utilized adhering to the principles of ALARA. COMPARISON STUDY: None. FINDINGS: Moderate right and small left pleural effusions with lower lobe consolidation. This favors compressive atelectasis from the pleural effusions. No pneumatosis. There is a healing left pubic ring fracture. There is a right total hip arthroplasty. There are bilateral sacral insufficiency fractures noted. These also are likely healing. Severe T12 compression deformity with 3 mm of retropulsion the posterior superior corner. Mild anterior wedging at L2. The re are moderate compression deformities at the superior endplate of L4 and inferior endplate of L5. These are technically age indeterminate but likely chronic. Cholelithiasis. No gallbladder wall thickening. Focal hypodensity within the splenic dome favors a splenic infarct. Mild atrophic right kidney. Delayed left nephrogram without hydronephrosis. This could be due to to the proximal left renal artery stenosis from the atherosclerotic plaque. There is severe calcified plaque within the aorta and mesenteric vessels. No evidence for an abdominal aortic aneurysm. No retroperitoneal lymphadenopathy. The main portal vein is patent. There is mild periportal edema. There is severe diffuse body wall edema. Trace ascites. No evidence for hemoperitoneum. There is a peritoneal dialysis catheter terminating within the anterior pelvis. Trace anterior pneumoperitoneum is likely due to the dialysis catheter. Bladder is underdistended and not well visualized. Moderate well-formed stool within the co jimy. There is mild mesenteric edema. No definite bowel wall thickening or obstruction. Hypodense appearance to the uterus which is not well visualized due to metallic artifact from the right hip prosthesis. IMPRESSION: 1. Peritoneal dialysis catheter is likely within the anterior pelvis. 2. No hemoperitoneum. 3. Severe diffuse body wall edema. 4. Cholelithiasis. 5. Delayed left nephrogram of uncertain etiology. No hydronephrosis. This could be due to a left renal artery stenosis. 6. Focal splenic infarct. 7. Healing pelvic fractures as described above. 8. Age-indeterminate compression fractures within the spine. These are likely chronic. 9. No definite bowel wall thickening or obstruction. 10. Hypodense appearance to the uterus which is not well visualized due to the metallic artifact the right hip prosthesis. Consider follow-up nonemergent pelvic ultrasound for further evaluation. ACT 112: Positive. There are findings on this exam that require communication between the performing entity and the patient following Patient Test Result Information Act ([place] Act 112) guidelines. Electronically signed by: Choco Gaines M.D. 11/23/2020 8:56 AM Chest X-Ray 11/22/20 21:44 XR chest 1V portable CLINICAL HISTORY: weakness, esrd COMPARISON STUDY: No previous studies for comparison. FINDINGS: There are median sternotomy wires and mediastinal surgical clips. No pneumothorax is present. There are bilateral pleural effusions right larger left. There are bibasilar opacities. Interstitial pulmonary edema is present. Note is made of cardiomegaly. IMPRESSION: Cardiomegaly with pulmonary edema and bilateral pleural effusions, right larger than left. ACT 112: Negative or not required by law. Electronically signed by: Anoop Connell M.D. 11/23/2020 7:33 AM Hospital Course (1) Acute hyponatremia: (2) End stage renal disease: The patient is a 80-year-old female with ESRD on peritoneal dialysis who was recently hospitalized for a right hip fracture repair on 11/03/2020 at [facility]. The procedure was complicated by postoperative blood loss anemia requiring 2 units of packed red blood cells. She also had an L5 vertebral body compression fracture evaluated by neurosurgery and deemed stable for conservative management. During that prior hospitalization she was also found to have urinary retention requiring multiple straight catheterizations, left eyes subject conjunctival hemorrhage and a urinary tract infection. While recovering at rehabilitation, peritoneal dialysis was being performed and blood was noted in the dialysis catheter. She also had symptomatic bloating and nausea, malaise and fatigue. She was brought to [facility] and a CT of the abdomen and pelvis with IV contrast was performed revealing no evidence of hemoperitoneum, severe diffuse body wall edema, cholelithiasis, focal splenic infarct, healing pelvic fractures, age-indeterminate compression fractures within the spine, and a hypodense appearance to the uterus which was not well visualized. Follow-up nonemergent pelvic ultrasound was considered for further evaluation. PD fluid analysis was equivocal for peritonitis, and she was started on IP Vanc and gentamycin. She continued to improve medically with prolonged peritoneal dialysis and abdominal pain resolved. No hemoperitoneum was present/persistent. Hyponatremia improved with therapy from 123 to 129 at time of transfer back to [facility]. Creat was 5.19 to 4.89, BUN was 123 to 98. Daughter requested transfer back to [facility] for continuity of care with most of her providers there, including her Logging Rafter Laborer. Recommend nonurgent pelvic us and further workup for splenic infarct with consideration for treatment at receiving facility. I discussed these findings with the patient prior to discharge and she verbalized understanding of the plan. She was transferred in stable condition for further care at [facility]. Current Inpatient Medications Acetaminophen (Acetaminophen 325 Mg Tab) 650 mg PO Q4H PRN PRN Reason: Pain or Fever Stop: 12/23/20 00:47 Last Admin: 11/25/20 11:02 Dose: 650 mg Documented by: Artificial Tears (Artificial Tears) 1 drops OP BID CHARLEY Stop: 12/23/20 08:59 Last Admin: 11/25/20 08:21 Dose: 1 appln Documented by: Aspirin (Aspirin 81 Mg Ectab) 81 mg PO DAILY CHARLEY Stop: 12/23/20 08:59 Last Admin: 11/25/20 08:16 Dose: 81 mg Documented by: Bacitracin (Bacitracin Oint 15 Gm Tube) 1 appln TOP [id number] [facility] Stop: 12/23/20 06:59 Last Admin: 11/25/20 12:27 Dose: 1 appln Documented by: Budesonide (Budesonide Ec 3 Mg Cap) 3 mg PO DAILY CHALREY Stop: 12/23/20 08:59 Last Admin: 11/25/20 08:18 Dose: 3 mg Documented by: Bumetanide (Bumetanide 1 Mg Tab) 3 mg PO BID@1200,1700 [facility] Stop: 12/23/20 11:59 Last Admin: 11/25/20 12:32 Dose: 3 mg Documented by: Bumetanide (Bumetanide 1 Mg Tab) 4 mg PO DAILY@0800 [facility] Stop: 12/23/20 07:59 Last Admin: 11/25/20 08:17 Dose: 4 mg Documented by: Cyanocobalamin (Cyanocobalamin 500 Mcg Tablet (Vitamin B-12)) 1,000 mcg PO DAILY [facility] Stop: 12/23/20 08:59 Last Admin: 11/25/20 08:17 Dose: 1,000 mcg Documented by: Dextrose (Dextrose 50% 50 Ml Syringe) 25 - 50 ml IV UD PRN; Protocol PRN Reason: Hypoglycemia Protocol Stop: 12/23/20 01:29 Docusate Sodium (Docusate Sodium 100 Mg Cap) 100 mg PO BID CHARLEY Stop: 12/23/20 08:59 Last Admin: 11/25/20 08:23 Dose: 100 mg Documented by: Donepezil HCl (Donepezil Hcl 10 Mg Tab) 10 mg PO DAILY [facility] Stop: 12/23/20 08:59 Last Admin: 11/25/20 08:16 Dose: 10 mg Documented by: Epoetin Rolando (Epoetin Rolando 20,000 Units/Ml Vial) 20,000 units SQ WeSa@0900 [facility] Stop: 12/28/20 08:59 Escitalopram Oxalate (Escitalopram Oxalate 10 Mg Tab) 10 mg PO DAILY [facility] Stop: 12/23/20 08:59 Last Admin: 11/25/20 08:17 Dose: 10 mg Documented by: Fluconazole (Fluconazole 100 Mg Tab) 100 mg PO DAILY [facility] Stop: 12/03/20 08:59 Last Admin: 11/25/20 08:17 Dose: 100 mg Documented by: Gabapentin (Gabapentin 100 Mg Cap) 200 mg PO HS [facility] Stop: 12/23/20 20:59 Last Admin: 11/24/20 20:00 Dose: 200 mg Documented by: Gentamicin Sulfate (Gentamicin Sulfate 0.1% Cr 15 Gm Tube) 1 appln EXT DAILY [facility] Stop: 12/05/20 08:59 Last Admin: 11/25/20 08:18 Dose: 1 appln Documented by: Glucagon (Glucagon For Inj 1 Mg Vial) 1 mg IM UD PRN; Protocol PRN Reason: Hypoglycemia Protocol Stop: 12/23/20 01:29 Glucose (Glucose 40% Gel 15 Gm Tube) 15 - 30 gm PO UD PRN; Protocol PRN Reason: Hypoglycemia Protocol Stop: 12/23/20 01:29 Glucose (Glucose 10 Tabs/Tube) 4 - 8 tabs PO UD PRN; Protocol PRN Reason: Hypoglycemia Protocol Stop: 12/23/20 01:29 Last Admin: 11/23/20 06:43 Dose: 4 tabs Documented by: Hydrocortisone (Hydrocortisone Hc 2.5% Crm 30gm Tube) 1 appln EXT BID PRN PRN Reason: Hemorrhoids Stop: 12/23/20 18:09 Last Admin: 11/25/20 04:41 Dose: 1 appln Documented by: Insulin Aspart (Insulin Aspart 100 Units/Ml 3 Ml Pen) 0 units SC ACHS [facility] Stop: 12/23/20 07:29 Last Admin: 11/25/20 12:27 Dose: 10 units Documented by: Insulin Glargine (Insulin Glargine Solostar 100 Units/Ml 3 Ml Pen) 5 units SC BID [facility] Stop: 12/25/20 08:59 Last Admin: 11/25/20 08:16 Dose: 5 units Documented by: Levothyroxine Sodium (Levothyroxine Sodium 125 Mcg Tablet) 125 mcg PO DAILYBB [facility] Stop: 12/23/20 06:29 Last Admin: 11/25/20 04:42 Dose: 125 mcg Documented by: Melatonin (Melatonin 3 Mg Tab) 3 mg PO HS PRN PRN Reason: Sleep Stop: 12/23/20 00:47 Miscellaneous (Carbohydrates For Hypoglycemia ) 15 - 30 gm PO UD PRN PRN Reason: Hypoglycemia Treatment Stop: 12/23/20 01:29 Miscellaneous Information (Pharmacy Glycemic Mgmt Consult) 1 ea N/A UD PRN PRN Reason: Consult Stop: 12/24/20 09:24 Miscellaneous Information (Vancomycin Consult Active) 1 ea N/A UD PRN PRN Reason: Consult Stop: 12/25/20 11:06 Multivitamins (Multivitamin Tab) 1 tab PO DAILY [facility] Stop: 12/23/20 08:59 Last Admin: 11/25/20 08:17 Dose: 1 tab Documented by: Nitroglycerin (Nitroglycerin Sl 0.4 Mg/Tab Tab) 0.4 mg SL UD PRN PRN Reason: Chest Pain Stop: 12/23/20 00:47 Balsalazide~Non- Formulary Patient's Own Med 1 ea PO TID [facility] Stop: 12/24/20 20:59 Last Admin: 11/25/20 08:18 Dose: 2 cap Documented by: Ondansetron HCl (Ondansetron Inj 2 Mg/Ml 2 Ml Vial) 4 mg IV Q6H PRN PRN Reason: Nausea Stop: 12/23/20 00:47 Last Admin: 11/24/20 21:18 Dose: 4 mg Documented by: Pantoprazole Sodium (Pantoprazole 40 Mg Tab) 40 mg PO DAILY [facility] Stop: 12/23/20 08:59 Last Admin: 11/25/20 08:17 Dose: 40 mg Documented by: Petrolatum (Butt Paste (Zinc Oxide 16%) 171 Appln/57 Gm Jar) 1 appln EXT BID [facility] Stop: 12/23/20 08:59 Last Admin: 11/25/20 08:22 Dose: 1 appln Documented by: Ropinirole HCl (Ropinirole Hcl 0.25 Mg Tablet) 0.5 mg PO HS [facility] Stop: 12/23/20 01:29 Last Admin: 11/24/20 20:00 Dose: 0.5 mg Documented by: Sodium Chloride (Sodium Chloride 0.65% Na Soln 45 Ml ([place])) 2 sprays NA PRN PRN PRN Reason: Dryness Stop: 12/23/20 15:15 Vitamin D (Cholecalciferol 1,000 Units 25 Mcg Tab) 1,000 units PO DAILY [facility] Stop: 12/23/20 08:59 Last Admin: 11/25/20 08:17 Dose: 1,000 units Documented by: Total Time Total Time Spent Total Time Spent (In Minutes): 60 Total Time Includes: Examination of the Patient, Discharge Planning, Medication Reconciliation and Communication With Other Providers Discharge Plan Discharge Items Patient Disposition: Transfer Acute Care Hospital Reason For Visit: SOB / BLOATING Discharge Diagnosis: ESRD on peritoneal dialysis with hemoperitoneum that has resolved Acute hyponatremia Recent right hip surgery UTI Stage III sacral ulcer present on admission Stage II pressure ulcer of back, present on admission Splenic infarction Condition on Discharge: Good Activity: As commented below Activity Comment: per receiving facility Non-emergency contact: Primary Care Provider Call non-emergency contact if: you have any medication questions, your symptoms worsen, your pain is not controlled, your pain is worsening, your pain is unusual for you, your pain is concerning for you, you have a fever, your wound has increased redness, your wound has increased drainage and your wound pain has increased Follow-up/Referrals: PCP,NO [Primary Care Provider] - Diet: Carb Consistent or DM2 and Dialysis Renal Addtl Attending Provider Instructions: You are being transferred to [facility] for continued treatment. Please consider a nonurgent pelvic ultrasound to evaluate your uterus, which appeared generally abnormal on the CT scan performed here. On this CT scan, you were also found to have a splenic infarction. As you are being transferred to another hospital facility, it would be recommended that investigation into an underlying cause be undertaken. Anticoagulation (blood thinners) may be indicated, however, this will be a multidisciplinary decision. Please consider follow-up wound care at an outpatient wound care clinic upon discharge from the receiving facility. Please follow-up with your primary care provider within one week of hospital discharge from receiving facility. It was a pleasure taking care of you! Please call if you have any questions or problems. You can reach a Juan Carlos hospitalist on duty at [facility] 24 hours a day by calling [phone]. Take care of yourself. Sylvia Troncoso, DO [facility] [address] Hospitalist Pending Studies at Discharge: No Stand-Alone Forms: My [facility] Skilled Items Patient informed of condition?: Yes DNR: No Discharge Level of Care: Other Communicable Disease: No Discharge Prognosis: Stable Lines: None Urinary Catheter: No Medications and DC Order Prescriptions: Continued multivitamin Tablet 1 tab PO DAILY RF: 0 fluconazole 100 mg Tablet 100 mg PO DAILY RF: 0 donepezil 10 mg Tablet 10 mg PO DAILY RF: 0 bacitracin 500 unit/gram Ointment 1 applic TOPICAL 5XD RF: 0 melatonin 3 mg Tablet 3 mg PO HS PRN (Reason: Sleep) RF: 0 aspirin [Aspirin Low Dose] 81 mg Tablet,Delayed Release (Dr/Ec) 81 mg PO DAILY RF: 0 levothyroxine 125 mcg Tablet 125 mcg PO DAILY RF: 0 docusate sodium 100 mg Capsule 100 mg PO BID RF: 0 balsalazide 750 mg Capsule 2,250 mg PO BID RF: 0 gentamicin 0.1 % Ointment 1 applic TOPICAL QID RF: 0 escitalopram oxalate 10 mg Tablet 10 mg PO DAILY RF: 0 zinc oxide Ointment 1 applic TOPICAL BID RF: 0 gabapentin 100 mg Tablet 200 mg PO HS RF: 0 Tradjenta 5 mg Tablet 5 mg PO DAILY RF: 0 bumetanide 2 mg Tablet 4 mg PO USEASDIRECTD RF: 0 pantoprazole 40 mg Tablet,Delayed Release (Dr/Ec) 40 mg PO DAILY RF: 0 nitroglycerin 0.4 mg Tablet, Sublingual 0.4 mg sublingual DAILY PRN (Reason: Chest Pain) RF: 0 repaglinide 1 mg Tablet 1 mg PO TID RF: 0 cholecalciferol (vitamin D3) [Vitamin D3] 25 mcg (1,000 unit) Tablet 25 mcg PO DAILY RF: 0 cyanocobalamin (vitamin B-12) 1,000 mcg Capsule 1,000 mcg PO DAILY RF: 0 carboxymethylcellulose sodium [Refresh Tears] 0.5 % Drops 1 drp OPHTHALMIC (EYE) BID RF: 0 ropinirole 0.5 mg Tablet 0.5 mg PO HS RF: 0 budesonide [Entocort EC] 3 mg Capsule,Delayed,Extend.Release 3 mg PO DAILY RF: 0 Discharge Orders: Discharge Order (Routine); Ordered 11/25/20 Ordered By: Sylvia Troncoso Admission Data Admit Date/Time: 11/22/20 23:38 Attending Provider: Sylvia Troncoso Admit Provider: Joaquin Rausch Primary Care Provider: PCP,NO Other Providers: Osmar Marc ; [facility] ; Duane Munoz
[2020-11-26] MEDS ORDERED: EPOETIN ALFA 20,000 UNITS/ML VIAL SQ SCH (09:00)
[2020-11-28] MEDS ORDERED: EPOETIN ALFA 20,000 UNITS/ML VIAL SQ SCH (09:00)
== END 2020-11-25 15:57 | disposition short-term general hospital (02) | DRG 371 ==
LOC: ED 19:13 → 2S 23:38 → SUATTDRO 23:38 → 2S 11-23 00:14